=== PATIENT | male | born 1985 | race African-American/Black ===

== ENCOUNTER 2018-06-20 13:55 | Inpatient (IN) ==
[2018-06-20 14:40] LABS: Basophils % 0.4 % (0.0-0.8); Eosinophils % 0.2 % (0.00-10.9); Hematocrit 36.1 VOL% (42.0-52.0); Hemoglobin 12.9 GM/DL (14.0-18.0); Immature Granulocytes % 0.4 %; Immature Granulocytes Absolute 0.02 #; Lymphocytes # 0.4 10*3/uL (1.4-4.0); Lymphocytes % 9.8 % (21.2-54.2); Mean Corpuscular HGB Conc 35.7 GM/DL (32-36); Mean Corpuscular Hemoglobin 34 PG (27-34); Mean Corpuscular Volume 96.3 FL (87-102); Mean Platelet Volume 10.5 FL (9.6-12.0); Monocytes # 0.5 10*3/uL (0.11-0.8); Monocytes % 11.8 % (1.7-12.7); Neutrophils # 3.5 10*3/uL (1.4-7.4); Neutrophils % 77.4 % (38.7-73.9); Red Blood Count 3.75 MC/CUMM (3.8-5.5); Red Cell Distribution Width 13.6 % (9.3-17.3); White Blood Count 4.5 T/CUMM (4-12)
[2018-06-20 14:41] LABS: Platelet Count 80 T/CUMM (130-400)
[2018-06-20 14:49] LABS: PT Patient Result 10.7 SECS; Partial Thromboplastin Time 22.9 SECS (0-40)
[2018-06-20 14:55] LABS: Ammonia 54 UMOL/L (11-32)
[2018-06-20 15:00] LABS: CKMB % 0.7 %; Troponin I < 0.015 NG/ML (0.00-0.045)
[2018-06-20 15:01] LABS: Alanine Aminotransferase 63 U/L (16-61); Albumin 3.7 G/DL (3.4-5.0); Alkaline Phosphatase 66 U/L (45-117); Aspartate Amino Transferase 162 U/L (0-37); Blood Urea Nitrogen 9 MG/DL (7-18); Calcium 9.3 MG/DL (8.5-10.1); Glucose 85 MG/DL (74-106); Osmolality,Calculated 270.8 MOS/KG (273-304); Potassium 3.5 MMOL/L (3.5-5.1); Sodium 137 MMOL/L (136-145); Total Protein 7.8 G/DL (6.4-8.3)
[2018-06-20 15:15] LABS: Apearance,Urine Slightly Hazy (Clear); Bilirubin,Urine Negative (Negative); Blood, Urine Moderate mg/dL (Negative); Glucose,Urine (UA) Negative (Negative); Hyaline Casts,Urine 12 /LPF (0-3); Ketones,Urine 80 mg/dL (Negative); Mucus,Urine Occasional /LPF (Occasional); Nitrite,Urine Negative (Negative); Protein,Urine 100 MG/DL; RBC,Urine <1 /HPF (0-4); Squamous Epithelial Cell,Urine Occasional /HPF (0-10); Urine Color Yellow (Yellow); Urine Specific Gravity 1.011 (1.001-1.035); WBC,Urine 5 /HPF (0-6)
[2018-06-20] MEDS ORDERED: SODIUM CHLORIDE 0.9% 1,000 ML IV STA ×2 (15:41→16:51)
[2018-06-20 15:52] LABS: Barbiturates Screen,Urine Negative (Negative); Benzodiazepines Screen,Urine Negative (Negative); Cannabinoid Screen,Urine Negative (Negative); Opiate Screen,Urine Negative (Negative); Phencyclidine Screen,Urine Negative (Negative)
[2018-06-20] MEDS ORDERED: METOCLOPRAMIDE 10 MG/2 ML VIAL IV STA (16:14)
[2018-06-20] MEDS ORDERED: ONDANSETRON 4 MG/2 ML VIAL IV STA (16:14)
[2018-06-20] MEDS ORDERED: METOCLOPRAMIDE 10 MG/2 ML VIAL ONE (16:15)
[2018-06-20] MEDS ORDERED: ONDANSETRON 4 MG/2 ML VIAL ONE (16:15)
[2018-06-20] MEDS ORDERED: ONDANSETRON 4 MG/2 ML VIAL IV PRN (16:52)
[2018-06-20] MEDS: SODIUM CHLORIDE 0.9% 1,000 ML IV SCH (18:08)
[2018-06-20] MEDS: ALUMINUM/MAGNES/SIMETH MAX STR 30 ML UDCUP PO SCH ×2 (20:41→22:38)
[2018-06-20] MEDS ORDERED: ENOXAPARIN 30 MG/0.3 ML SYRINGE SUBCUT SCH (21:00)
[2018-06-20] MEDS: cloNIDine 0.1 MG TABLET PO PRN (21:41)
[2018-06-20] MEDS ORDERED: CLORAZEPATE 7.5 MG TABLET PO SCH (22:15)
[2018-06-20] MEDS: LORazepam 1 MG TABLET PO PRN (22:35)
[2018-06-21] MEDS: SODIUM CHLORIDE 0.9% 1,000 ML IV SCH ×4 (01:17→17:17)
[2018-06-21] MEDS: ALUMINUM/MAGNES/SIMETH MAX STR 30 ML UDCUP PO SCH ×4 (02:35→14:50)
[2018-06-21 04:17] LABS: Basophils % 0.4 % (0.0-0.8); Hematocrit 33.4 VOL% (42.0-52.0); Hemoglobin 11.6 GM/DL (14.0-18.0); Immature Granulocytes % 0.4 %; Immature Granulocytes Absolute 0.02 #; Lymphocytes # 0.6 10*3/uL (1.4-4.0); Lymphocytes % 10.6 % (21.2-54.2); Mean Corpuscular HGB Conc 34.7 GM/DL (32-36); Mean Corpuscular Hemoglobin 33 PG (27-34); Mean Platelet Volume 10.8 FL (9.6-12.0); Monocytes # 0.6 10*3/uL (0.11-0.8); Monocytes % 11.1 % (1.7-12.7); Neutrophils # 4.3 10*3/uL (1.4-7.4); Neutrophils % 77.5 % (38.7-73.9); Red Blood Count 3.48 MC/CUMM (3.8-5.5); Red Cell Distribution Width 13.2 % (9.3-17.3); White Blood Count 5.6 T/CUMM (4-12)
[2018-06-21 04:26] LABS: Platelet Count 62 T/CUMM (130-400)
[2018-06-21 04:47] LABS: Lactic Acid 0.8 MMOL/L (0.4-2.0)
[2018-06-21 05:06] LABS: Hypochromasia 1+; Platelet Estimate Decreased
[2018-06-21 05:10] LABS: Albumin 3.1 G/DL (3.4-5.0); Bilirubin,Total 1.5 MG/DL (0.2-1.0); Calcium 8.5 MG/DL (8.5-10.1); Osmolality,Calculated 264.2 MOS/KG (273-304); Total Protein 6.6 G/DL (6.4-8.3)
[2018-06-21 05:13] LABS: Troponin I 0.32 NG/ML (0.00-0.045)
[2018-06-21] MEDS: LORazepam 1 MG TABLET PO PRN ×2 (06:09→20:27)
[2018-06-21] MEDS: POTASSIUM CHLORIDE 20 MEQ TABLET PO PRN ×4 (06:09→12:08)
[2018-06-21] MEDS ORDERED: POTASSIUM CHLORIDE 20 MEQ TABLET PO ONE (08:21)
[2018-06-21] MEDS ORDERED: CLORAZEPATE 7.5 MG TABLET PO SCH (09:00)
[2018-06-21] MEDS: chlordiazePOXIDE 25 MG CAPSULE PO SCH ×3 (09:09→20:27)
[2018-06-21] MEDS: cloNIDine 0.1 MG TABLET PO PRN (16:15)
[2018-06-22] MEDS: SODIUM CHLORIDE 0.9% 1,000 ML IV SCH ×2 (00:50→08:36)
[2018-06-22] MEDS: chlordiazePOXIDE 25 MG CAPSULE PO SCH ×5 (04:06→21:35)
[2018-06-22 06:00] LABS: Basophils % 0.4 % (0.0-0.8); Eosinophils % 0.6 % (0.00-10.9); Hematocrit 34.4 VOL% (42.0-52.0); Hemoglobin 12.3 GM/DL (14.0-18.0); Immature Granulocytes % 0.4 %; Immature Granulocytes Absolute 0.02 #; Lymphocytes # 1.1 10*3/uL (1.4-4.0); Lymphocytes % 19.9 % (21.2-54.2); Mean Corpuscular HGB Conc 35.8 GM/DL (32-36); Mean Corpuscular Hemoglobin 34 PG (27-34); Mean Platelet Volume 10.8 FL (9.6-12.0); Monocytes # 0.6 10*3/uL (0.11-0.8); Monocytes % 10.8 % (1.7-12.7); NRBC # 0.02 10*3/uL; Neutrophils # 3.6 10*3/uL (1.4-7.4); Neutrophils % 67.9 % (38.7-73.9); Platelet Count 64 T/CUMM (130-400); Red Blood Count 3.62 MC/CUMM (3.8-5.5); Red Cell Distribution Width 13.2 % (9.3-17.3); White Blood Count 5.3 T/CUMM (4-12)
[2018-06-22 06:28] LABS: Hypochromasia 1+; Platelet Estimate Decreased
[2018-06-22 07:28] LABS: Albumin 2.6 G/DL (3.4-5.0); Bilirubin,Total 1.2 MG/DL (0.2-1.0); Calcium 8.3 MG/DL (8.5-10.1); Osmolality,Calculated 277.4 MOS/KG (273-304); Potassium 3.7 MMOL/L (3.5-5.1); Total Protein 6.3 G/DL (6.4-8.3); Troponin I 0.105 NG/ML (0.00-0.045)
[2018-06-22] MEDS: SODIUM BICARB INJ 50 MEQ in SODIUM CHLORIDE 0.45% 1,000 ML IV SCH ×2 (10:57→21:10)
[2018-06-22] MEDS: LORazepam 1 MG TABLET PO PRN ×2 (13:29→18:57)
[2018-06-22] MEDS ORDERED: LORazepam 1 MG TABLET PO ONE (15:27)
[2018-06-22 20:47] VITALS: BP 151/102
[2018-06-22] MEDS: cloNIDine 0.1 MG TABLET PO PRN (21:36)
== END 2018-06-22 22:55 | disposition left against medical advice (07) | DRG 894 ==
LOC: EDBD → EDUNIT# → N.ED 13:55 → N.EDINP 16:37 → SUATTDRO 16:37 → N.2E 17:13 → N.ICU 17:45 → N.2E 06-21 18:00
PROVIDERS: ADMIT Internal Medicine; ATTEND Internal Medicine

== ENCOUNTER 2018-08-23 09:48 | Inpatient (IN) ==
[2018-08-23] MEDS ORDERED: SODIUM CHLORIDE 0.9% 500 ML IV STA (11:03)
[2018-08-23] MEDS ORDERED: ONDANSETRON 4 MG/2 ML VIAL IV STA (11:03)
[2018-08-23 11:37] LABS: Basophils # 0.1 10*3/uL (0.0-0.2); Basophils % 1.3 % (0.0-0.8); Eosinophils % 0.3 % (0.00-10.9); Hematocrit 39.1 VOL% (42.0-52.0); Hemoglobin 13.7 GM/DL (14.0-18.0); Immature Granulocytes % 0.3 %; Immature Granulocytes Absolute 0.01 #; Lymphocytes # 0.7 10*3/uL (1.4-4.0); Lymphocytes % 19.2 % (21.2-54.2); Mean Corpuscular Hemoglobin 33 PG (27-34); Mean Corpuscular Volume 95.1 FL (87-102); Mean Platelet Volume 10.1 FL (9.6-12.0); Monocytes # 0.6 10*3/uL (0.11-0.8); Monocytes % 14.9 % (1.7-12.7); Neutrophils # 2.4 10*3/uL (1.4-7.4); Platelet Count 89 T/CUMM (130-400); Red Blood Count 4.11 MC/CUMM (3.8-5.5); Red Cell Distribution Width 13.4 % (9.3-17.3); White Blood Count 3.8 T/CUMM (4-12)
[2018-08-23] MEDS ORDERED: ALUM/MAG/SIMETH/LIDO VISC 1:1 30 ML BOTTLE PO STA (11:39)
[2018-08-23 12:00] LABS: Hypochromasia 1+; Target Cells Few
[2018-08-23 12:01] LABS: Platelet Estimate Decreased
[2018-08-23 12:02] LABS: Albumin 3.7 G/DL (3.4-5.0); Bilirubin,Total 1.1 MG/DL (0.2-1.0); Potassium 3.5 MMOL/L (3.5-5.1); Total Protein 8.2 G/DL (6.4-8.3)
[2018-08-23] MEDS ORDERED: LORazepam 2 MG/1 ML VIAL IV PRN (13:56)
[2018-08-23] MEDS ORDERED: SODIUM CHLORIDE 0.9% 1,000 ML IV STA (13:59)
[2018-08-23] MEDS ORDERED: MORPHINE 4 MG/1 ML VIAL IV PRN (14:00)
[2018-08-23] MEDS ORDERED: THIAMINE INJ 100 MG, FOLIC ACID INJ 1 MG, MULTIVITAMIN INJ 10 ML in SODIUM CHLORIDE 0.9... IV SCH (14:00)
[2018-08-23] MEDS ORDERED: SODIUM CHLORIDE 0.9% 1,000 ML IV SCH (14:00)
[2018-08-23 15:01] LABS: Triglycerides 86 MG/DL (2-150)
[2018-08-23] MEDS: FAMOTIDINE 20 MG/2 ML VIAL IV SCH (16:00)
[2018-08-23] MEDS: OXAZEPAM 10 MG CAPSULE PO SCH ×2 (17:19→20:37)
[2018-08-23] MEDS: 1: THIAMINE INJ 100 MG, MULTIVITAMIN INJ 10 ML, FOLIC ACID INJ 1 MG in SODIUM CHLORIDE 0 IV SCH (17:20)
[2018-08-24] MEDS: FAMOTIDINE 20 MG/2 ML VIAL IV SCH ×2 (02:10→15:00)
[2018-08-24] MEDS: 1: THIAMINE INJ 100 MG, MULTIVITAMIN INJ 10 ML, FOLIC ACID INJ 1 MG in SODIUM CHLORIDE 0 IV SCH ×2 (03:46→17:16)
[2018-08-24] MEDS: ONDANSETRON 4 MG/2 ML VIAL IV PRN ×2 (04:40→09:40)
[2018-08-24 04:57] LABS: Basophils % 0.9 % (0.0-0.8); Eosinophils % 0.6 % (0.00-10.9); Hematocrit 37.2 VOL% (42.0-52.0); Hemoglobin 12.9 GM/DL (14.0-18.0); Immature Granulocytes % 0.3 %; Immature Granulocytes Absolute 0.01 #; Lymphocytes # 1.4 10*3/uL (1.4-4.0); Lymphocytes % 41.9 % (21.2-54.2); Mean Corpuscular HGB Conc 34.7 GM/DL (32-36); Mean Corpuscular Hemoglobin 33 PG (27-34); Mean Corpuscular Volume 94.9 FL (87-102); Mean Platelet Volume 10.9 FL (9.6-12.0); Monocytes # 0.5 10*3/uL (0.11-0.8); Monocytes % 14.9 % (1.7-12.7); Neutrophils # 1.4 10*3/uL (1.4-7.4); Neutrophils % 41.4 % (38.7-73.9); Red Blood Count 3.92 MC/CUMM (3.8-5.5); Red Cell Distribution Width 12.9 % (9.3-17.3); White Blood Count 3.3 T/CUMM (4-12)
[2018-08-24 05:01] LABS: Platelet Count 71 T/CUMM (130-400)
[2018-08-24 05:24] LABS: Hypochromasia 1+; Platelet Estimate Decreased
[2018-08-24 05:39] LABS: Albumin 3.2 G/DL (3.4-5.0); Bilirubin,Total 0.98 MG/DL (0.2-1.0); Calcium 8.5 MG/DL (8.5-10.1); Total Protein 7.2 G/DL (6.4-8.3)
[2018-08-24 05:40] LABS: Osmolality,Calculated 272.7 MOS/KG (273-304); Potassium 3.6 MMOL/L (3.5-5.1)
[2018-08-24] MEDS ORDERED: PROMETHAZINE INJ 12.5 MG in SODIUM CHLORIDE 0.9% 50 ML IV PRN (09:23)
[2018-08-24] MEDS ORDERED: MAGNESIUM SULF RIDER 2 GM in PREMIX 1 EACH IV ONE (09:30)
[2018-08-24] MEDS: OXAZEPAM 10 MG CAPSULE PO SCH ×5 (09:34→21:40)
[2018-08-24] MEDS: ATENOLOL 25 MG TABLET PO SCH ×2 (11:13→21:39)
[2018-08-24] MEDS ORDERED: ALUMINUM/MAGNES/SIMETH MAX STR 30 ML UDCUP PO PRN (11:44)
[2018-08-24] MEDS: SODIUM CHLORIDE 0.9% 1,000 ML IV SCH ×2 (15:02→23:31)
[2018-08-25] MEDS: FAMOTIDINE 20 MG/2 ML VIAL IV SCH (02:10)
[2018-08-25 05:28] LABS: Calcium 8.7 MG/DL (8.5-10.1); Osmolality,Calculated 272.7 MOS/KG (273-304); Potassium 3.6 MMOL/L (3.5-5.1)
[2018-08-25] MEDS: SODIUM CHLORIDE 0.9% 1,000 ML IV SCH (07:28)
[2018-08-25] MEDS: OXAZEPAM 10 MG CAPSULE PO SCH ×2 (08:22→14:08)
[2018-08-25] MEDS: ATENOLOL 25 MG TABLET PO SCH (08:22)
[2018-08-25 12:15] VITALS: BP 143/92
[2018-08-25] MEDS ORDERED: FAMOTIDINE 20 MG TABLET PO SCH (21:00)
== END 2018-08-25 16:37 | disposition home or self-care (01) | DRG 897 ==
LOC: N.ED 09:48 → SUATTDRO 14:13 → N.EDINP 14:13 → N.CC 14:56 → N.3E 08-24 21:53
PROVIDERS: ADMIT Internal Medicine Geriatric Medicine; ATTEND Family Medicine

== ENCOUNTER 2020-05-13 03:57 | Observation (INO) ==
[2020-05-13] MEDS ORDERED: ONDANSETRON 4 MG/2 ML VIAL IV ONE (04:41)
[2020-05-13] MEDS ORDERED: ONDANSETRON 4 MG/2 ML VIAL ONE (04:42)
[2020-05-13 04:46] LABS: Basophils % 0.9 % (0.0-0.8); Eosinophils % 0.2 % (0.00-10.9); Hematocrit 38.7 VOL% (42.0-52.0); Immature Granulocytes % 0.9 %; Immature Granulocytes Absolute 0.04 #; Lymphocytes # 0.7 10*3/uL (1.4-4.0); Lymphocytes % 15.5 % (21.2-54.2); Mean Corpuscular HGB Conc 33.6 GM/DL (32-36); Mean Corpuscular Volume 101.3 FL (87-102); Mean Platelet Volume 12.3 FL (9.6-12.0); Monocytes % 12.2 % (1.7-12.7); Neutrophils % 70.3 % (38.7-73.9); Platelet Count 82 T/CUMM (130-400); Red Blood Count 3.82 MC/CUMM (3.8-5.5); Red Cell Distribution Width 13.3 % (9.3-17.3); White Blood Count 4.6 T/CUMM (4-12)
[2020-05-13 05:01] LABS: Albumin 3.4 G/DL (3.4-5.0); Bilirubin,Total 1.5 MG/DL (0.2-1.0); Calcium 9.1 MG/DL (8.5-10.1); Osmolality,Calculated 273.7 MOS/KG (273-304); Total Protein 8.1 G/DL (6.4-8.3)
[2020-05-13 05:06] LABS: Apearance,Urine Slightly Hazy (Clear); Bacteria,Urine Occasional /HPF (Few); Bilirubin,Urine Negative (Negative); Blood, Urine Negative (Negative); Glucose,Urine (UA) Negative (Negative); Hyaline Casts,Urine 12 /LPF (0-3); Ketones,Urine 20 mg/dL (Negative); Mucus,Urine Occasional /LPF (Occasional); Nitrite,Urine Negative (Negative); Protein,Urine 100 MG/DL; RBC,Urine 7 /HPF (0-4); Squamous Epithelial Cell,Urine Occasional /HPF (0-10); Urine Specific Gravity 1.014 (1.001-1.035); WBC,Urine 15 /HPF (0-6)
[2020-05-13] MEDS ORDERED: FOSPHENYTOIN 1,000 MG.PE in SODIUM CHLORIDE 0.9% 250 ML IV STA (05:06)
[2020-05-13] MEDS ORDERED: LORazepam 2 MG/1 ML VIAL IV STA ×2 (05:06→05:23)
[2020-05-13] MEDS ORDERED: LORazepam 2 MG/1 ML VIAL ONE (05:06)
[2020-05-13 05:07] LABS: Urine Color Yellow (Yellow)
[2020-05-13] MEDS ORDERED: FOSPHENYTOIN 500 MG.PE/10 ML VIAL ONE (05:08)
[2020-05-13 05:16] LABS: Eosinophils 1 % (0-10); Lymphocytes 15 % (20-55); Nucleated Red Blood Cells 1 (0-5); Platelet Estimate Decreased; Segmented Neutrophils 73 % (50-85); Total Cells Counted 100
[2020-05-13] MEDS ORDERED: cefTRIAXone 1,000 MG in SODIUM CHLORIDE 0.9% 100 ML IV STA (05:17)
[2020-05-13] MEDS ORDERED: THIAMINE INJ 100 MG, FOLIC ACID INJ 1 MG, MAGNESIUM SULF INJ 2 GM, MULTIVITAMIN INJ 10 ... IV ONE (05:36)
[2020-05-13] MEDS ORDERED: DEXTROSE 50% 25 GM/50 ML VIAL IV PRN (05:39)
[2020-05-13] MEDS ORDERED: GLUCAGON 1 MG VIAL IM PRN (05:39)
[2020-05-13] MEDS ORDERED: ACETAMINOPHEN 325 MG TABLET PO PRN (05:39)
[2020-05-13] MEDS ORDERED: ONDANSETRON 4 MG/2 ML VIAL IV PRN (05:39)
[2020-05-13 05:54] LABS: Barbiturates Screen,Urine Negative (Negative); Benzodiazepines Screen,Urine Negative (Negative); Cannabinoid Screen,Urine Negative (Negative); Opiate Screen,Urine Negative (Negative); Phencyclidine Screen,Urine Negative (Negative)
[2020-05-13] MEDS ORDERED: SODIUM CHLORIDE 0.9% 1,000 ML IV SCH (06:00)
[2020-05-13] MEDS ORDERED: cefTRIAXone 1,000 MG VIAL ONE (06:14)
[2020-05-13] MEDS ORDERED: THIAMINE 200 MG/2 ML VIAL IV SCH (09:00)
[2020-05-13] MEDS: MULTIVITAMIN (CENTRUM) TABLET PO SCH (10:49)
[2020-05-13] MEDS: FOLIC ACID 1 MG TABLET PO SCH (10:51)
[2020-05-13] MEDS: THIAMINE 100 MG TABLET PO SCH (12:24)
[2020-05-13] MEDS: ENOXAPARIN 30 MG/0.3 ML SYRINGE SUBCUT SCH (13:00)
[2020-05-13] MEDS: LACTATED RINGERS 1,000 ML IV SCH ×2 (13:13→23:01)
[2020-05-13] MEDS: LORazepam 2 MG/1 ML VIAL IV PRN ×2 (13:31→21:02)
[2020-05-13] MEDS ORDERED: POTASSIUM CHLORIDE 20 MEQ TABLET PO ONE (14:05)
[2020-05-13] MEDS ORDERED: chlordiazePOXIDE 25 MG CAPSULE PO ONE (14:07)
[2020-05-13] MEDS: levETIRAcetam 500 MG TABLET PO SCH (20:48)
[2020-05-14 07:00] LABS: Basophils % 0.5 % (0.0-0.8); Hematocrit 37.3 VOL% (42.0-52.0); Immature Granulocytes % 0.5 %; Immature Granulocytes Absolute 0.02 #; Lymphocytes # 0.9 10*3/uL (1.4-4.0); Lymphocytes % 21.3 % (21.2-54.2); Mean Corpuscular HGB Conc 34.9 GM/DL (32-36); Mean Corpuscular Volume 96.1 FL (87-102); Mean Platelet Volume 11.7 FL (9.6-12.0); Monocytes % 13.7 % (1.7-12.7); Platelet Count 62 T/CUMM (130-400); Red Blood Count 3.88 MC/CUMM (3.8-5.5); Red Cell Distribution Width 12.8 % (9.3-17.3); White Blood Count 4.2 T/CUMM (4-12)
[2020-05-14 07:27] LABS: Platelet Estimate Decreased
[2020-05-14 07:31] LABS: Albumin 3.2 G/DL (3.4-5.0); Bilirubin,Direct 0.91 MG/DL (0.0-0.20); Bilirubin,Indirect 1.4 MG/DL (0.0-1.0); Bilirubin,Total 2.3 MG/DL (0.2-1.0); Total Protein 7.4 G/DL (6.4-8.3)
[2020-05-14 07:37] LABS: Calcium 8.8 MG/DL (8.5-10.1); Osmolality,Calculated 268.8 MOS/KG (273-304); Thyroid Stimulating Hormone 2.26 uIU/ml (0.358-3.74)
[2020-05-14] MEDS: LACTATED RINGERS 1,000 ML IV SCH ×3 (09:21→19:56)
[2020-05-14] MEDS: FOLIC ACID 1 MG TABLET PO SCH (09:22)
[2020-05-14] MEDS: cefTRIAXone 1,000 MG in SYRINGE 1 EACH IV SCH (09:22)
[2020-05-14] MEDS: ENOXAPARIN 30 MG/0.3 ML SYRINGE SUBCUT SCH (09:22)
[2020-05-14] MEDS: THIAMINE 100 MG TABLET PO SCH (09:22)
[2020-05-14] MEDS: MULTIVITAMIN (CENTRUM) TABLET PO SCH (09:22)
[2020-05-14] MEDS: levETIRAcetam 500 MG TABLET PO SCH ×2 (09:22→21:10)
[2020-05-14] MEDS: chlordiazePOXIDE 25 MG CAPSULE PO SCH ×3 (09:26→21:10)
[2020-05-15] MEDS: LACTATED RINGERS 1,000 ML IV SCH ×2 (05:50→21:29)
[2020-05-15] MEDS: ENOXAPARIN 30 MG/0.3 ML SYRINGE SUBCUT SCH (08:35)
[2020-05-15] MEDS: chlordiazePOXIDE 25 MG CAPSULE PO SCH ×3 (08:35→21:28)
[2020-05-15] MEDS: levETIRAcetam 500 MG TABLET PO SCH ×2 (08:35→21:29)
[2020-05-15] MEDS: MULTIVITAMIN (CENTRUM) TABLET PO SCH (08:35)
[2020-05-15] MEDS: cefTRIAXone 1,000 MG in SYRINGE 1 EACH IV SCH (08:36)
[2020-05-15] MEDS: THIAMINE 100 MG TABLET PO SCH (08:36)
[2020-05-15] MEDS: FOLIC ACID 1 MG TABLET PO SCH (08:36)
[2020-05-15] MEDS ORDERED: POTASSIUM CHLORIDE 20 MEQ TABLET PO ONE (11:53)
[2020-05-16] MEDS: LACTATED RINGERS 1,000 ML IV SCH (02:51)
[2020-05-16 05:11] LABS: Osmolality,Calculated 273.5 MOS/KG (273-304)
[2020-05-16 08:20] VITALS: BP 129/86
[2020-05-16] MEDS: chlordiazePOXIDE 25 MG CAPSULE PO SCH (08:30)
[2020-05-16] MEDS: MULTIVITAMIN (CENTRUM) TABLET PO SCH (08:30)
[2020-05-16] MEDS: ENOXAPARIN 30 MG/0.3 ML SYRINGE SUBCUT SCH (08:30)
[2020-05-16] MEDS: FOLIC ACID 1 MG TABLET PO SCH (08:30)
[2020-05-16] MEDS: levETIRAcetam 500 MG TABLET PO SCH (08:30)
[2020-05-16] MEDS: THIAMINE 100 MG TABLET PO SCH (08:30)
== END 2020-05-16 10:34 | disposition home or self-care (01) ==
LOC: EDUNIT# → EDBD → N.ED 03:57 → N.EDINP 03:57 → SUATTDRO 05:39 → N.TELEN 07:32
PROVIDERS: ADMIT Internal Medicine; ATTEND Internal Medicine

== ENCOUNTER 2021-03-08 09:01 | Inpatient (IN) ==
[2021-03-08] MEDS ORDERED: THIAMINE INJ 100 MG, FOLIC ACID INJ 1 MG, MAGNESIUM SULF INJ 2 GM, MULTIVITAMIN INJ 10 ... IV STA (09:18)
[2021-03-08] MEDS ORDERED: SODIUM CHLORIDE 0.9% 1,000 ML IV STA (09:18)
[2021-03-08 10:05] LABS: Basophils % 0.3 % (0.0-0.8); Hematocrit 29.3 VOL% (42.0-52.0); Hemoglobin 10.9 GM/DL (14.0-18.0); Immature Granulocytes % 2.1 %; Immature Granulocytes Absolute 0.13 #; Lymphocytes # 0.6 10*3/uL (1.4-4.0); Lymphocytes % 9.1 % (21.2-54.2); Mean Corpuscular HGB Conc 37.2 GM/DL (32-36); Mean Corpuscular Volume 94.2 FL (87-102); Mean Platelet Volume 12.2 FL (9.6-12.0); Monocytes % 12.6 % (1.7-12.7); NRBC # 0.05 10*3/uL; Neutrophils % 75.9 % (38.7-73.9); Platelet Count 100 T/CUMM (130-400); Red Blood Count 3.11 MC/CUMM (3.8-5.5); Red Cell Distribution Width 15.6 % (9.3-17.3); White Blood Count 6.3 T/CUMM (4-12)
[2021-03-08 10:10] LABS: INR 1.4; PT Patient Result 15.8 SECS (10.5-12.0)
[2021-03-08 10:52] LABS: Platelet Estimate Adequate; Polychromasia Slight; Target Cells 1+
[2021-03-08 11:51] LABS: Albumin 2.2 G/DL (3.4-5.0); Calcium 8.3 MG/DL (8.5-10.1); Osmolality,Calculated 257.8 MOS/KG (273-304); Total Protein 6.5 G/DL (6.4-8.2)
[2021-03-08 11:53] LABS: Bilirubin,Total 19.7 MG/DL (0.2-1.0); Potassium 2.3 MMOL/L (3.5-5.1)
[2021-03-08] MEDS ORDERED: POTASSIUM CHLORIDE 20 MEQ TABLET PO STA (11:57)
[2021-03-08] MEDS ORDERED: POTASSIUM CHLORIDE RIDER 20 MEQ in PREMIX 1 EACH IV STA (12:05)
[2021-03-08 12:06] LABS: Blood, Urine Negative (Negative); Glucose,Urine (UA) Negative (Negative); Ketones,Urine 20 mg/dL (Negative); Mucus,Urine Occasional /LPF (Occasional); Nitrite,Urine Negative (Negative); Protein,Urine 30 MG/DL; RBC,Urine 1 /HPF (0-4); Squamous Epithelial Cell,Urine Occasional /HPF (0-10); Urine Appearance CLEAR (Clear); Urine Color Amber (Yellow); Urine Specific Gravity 1.012 (1.001-1.035)
[2021-03-08 12:07] LABS: Bilirubin,Urine Moderate mg/dL (Negative)
[2021-03-08] MEDS ORDERED: POTASSIUM CHLORIDE RIDER 100 ML IV ONE (12:17)
[2021-03-08 12:25] LABS: Barbiturates Screen,Urine Negative (Negative); Benzodiazepines Screen,Urine Negative (Negative); Cannabinoid Screen,Urine Negative (Negative); Opiate Screen,Urine Negative (Negative); Phencyclidine Screen,Urine Negative (Negative)
[2021-03-08] MEDS: POTASSIUM CHLORIDE RIDER 10 MEQ in PREMIX 1 EACH IV SCH ×5 (12:49→22:22)
[2021-03-08 13:40] LABS: Bilirubin,Direct 15.41 MG/DL (0.0-0.20)
[2021-03-08 13:43] LABS: Bilirubin,Indirect 4.3 MG/DL (0.0-1.0); Bilirubin,Total 19.7 MG/DL (0.2-1.0)
[2021-03-08] MEDS ORDERED: PANTOPRAZOLE 40 MG TABLET PO SCH (15:30)
[2021-03-08] MEDS: levETIRAcetam 500 MG TABLET PO SCH (17:05)
[2021-03-08] MEDS ORDERED: LORazepam 2 MG/1 ML VIAL IV PRN (17:17)
[2021-03-08 17:46] LABS: % Iron Saturation 85.7 % (18-50)
[2021-03-08] MEDS: SODIUM CHLORIDE 0.9% 1,000 ML IV SCH (18:00)
[2021-03-08 18:25] LABS: Hepatitis B Core IgM Quant 0.07 Index; Hepatitis B Surface Ag Quant < 0.10 Index; Hepatitis B Surface Ag Result Non-Reactive (NonReactive); Hepatitis C Virus Ab Quant 0.13 Index; Hepatitis C Virus Ab Result Non-Reactive (NonReactive)
[2021-03-08 20:04] LABS: Blood, Urine Negative (Negative); Glucose,Urine (UA) Negative (Negative); Hyaline Casts,Urine 3 /LPF (0-3); Ketones,Urine 20 mg/dL (Negative); Mucus,Urine Occasional /LPF (Occasional); Nitrite,Urine Negative (Negative); Protein,Urine Negative; RBC,Urine 1 /HPF (0-4); Squamous Epithelial Cell,Urine Occasional /HPF (0-10); Urine Appearance CLEAR (Clear); Urine Color Amber (Yellow)
[2021-03-08 20:11] LABS: Bilirubin,Urine Moderate mg/dL (Negative)
[2021-03-08] MEDS: POTASSIUM CHLORIDE 20 MEQ/15 ML UDCUP PO SCH (22:00)
[2021-03-08] MEDS: PHENYTOIN ER 100 MG CAPSULE PO SCH (22:00)
[2021-03-08] MEDS: chlordiazePOXIDE 25 MG CAPSULE PO SCH (22:00)
[2021-03-08] MEDS: PANTOPRAZOLE 40 MG VIAL IV SCH (22:01)
[2021-03-09] MEDS: ONDANSETRON 4 MG/2 ML VIAL IV PRN (01:41)
[2021-03-09 03:00] LABS: Basophils % 0.4 % (0.0-0.8); Eosinophils % 0.2 % (0.00-10.9); Hematocrit 21.7 VOL% (42.0-52.0); Immature Granulocytes % 0.9 %; Immature Granulocytes Absolute 0.05 #; Lymphocytes # 0.8 10*3/uL (1.4-4.0); Lymphocytes % 13.5 % (21.2-54.2); Mean Corpuscular HGB Conc 38.7 GM/DL (32-36); Mean Corpuscular Volume 94.8 FL (87-102); Mean Platelet Volume 10.9 FL (9.6-12.0); Monocytes % 11.5 % (1.7-12.7); Neutrophils % 73.5 % (38.7-73.9); Platelet Count 62 T/CUMM (130-400); Red Blood Count 2.29 MC/CUMM (3.8-5.5); Red Cell Distribution Width 15.4 % (9.3-17.3); White Blood Count 5.6 T/CUMM (4-12)
[2021-03-09 03:07] LABS: Hemoglobin 8.4 GM/DL (14.0-18.0)
[2021-03-09 03:20] LABS: Calcium 8.2 MG/DL (8.5-10.1); Osmolality,Calculated 255.9 MOS/KG (273-304); Potassium 2.9 MMOL/L (3.5-5.1); Total Protein 5.8 G/DL (6.4-8.2)
[2021-03-09 03:24] LABS: Bilirubin,Total 19.5 MG/DL (0.2-1.0)
[2021-03-09 03:34] LABS: Lymphocytes 9 % (20-55); Nucleated Red Blood Cells 5 (0-5); Platelet Estimate Decreased; Segmented Neutrophils 88 % (50-85); Total Cells Counted 100
[2021-03-09 03:35] LABS: Hypochromasia Slight; Target Cells Few
[2021-03-09] MEDS ORDERED: PROMETHAZINE 25 MG/1 ML VIAL IM ONE (03:49)
[2021-03-09] MEDS ORDERED: KETOROLAC 30 MG/1 ML VIAL IM ONE (03:49)
[2021-03-09] MEDS: levETIRAcetam 500 MG TABLET PO SCH ×2 (04:08→16:02)
[2021-03-09] MEDS: POTASSIUM CHLORIDE RIDER 10 MEQ in PREMIX 1 EACH IV SCH (07:07)
[2021-03-09] MEDS: SODIUM CHLORIDE 0.9% 1,000 ML IV SCH ×2 (07:20→11:03)
[2021-03-09 10:33] LABS: INR 1.3; PT Patient Result 14.5 SECS (10.5-12.0); Partial Thromboplastin Time 37.3 SECS (23.9-33.8)
[2021-03-09] MEDS ORDERED: SODIUM CHLORIDE 0.9% 1,000 ML IV PRN (10:43)
[2021-03-09 10:59] LABS: Hematocrit 25.6 VOL% (42.0-52.0); Hemoglobin 9.3 GM/DL (14.0-18.0)
[2021-03-09] MEDS: chlordiazePOXIDE 25 MG CAPSULE PO SCH (10:59)
[2021-03-09] MEDS: POTASSIUM CHLORIDE 20 MEQ/15 ML UDCUP PO SCH ×3 (10:59→20:03)
[2021-03-09] MEDS: FOLIC ACID INJ 1 MG in SYRINGE 1 EACH IV SCH (10:59)
[2021-03-09] MEDS: prednisoLONE 15 MG/5 ML ORAL.SYR PO SCH (11:00)
[2021-03-09] MEDS: PANTOPRAZOLE 40 MG VIAL IV SCH ×2 (11:00→20:07)
[2021-03-09] MEDS: THIAMINE 200 MG/2 ML VIAL IV SCH (11:00)
[2021-03-09] MEDS: SODIUM CHLOR 0.9% KCL 20 MEQ 20 MEQ/1,000 ML BAG IV SCH (16:02)
[2021-03-09] MEDS: PHENYTOIN ER 100 MG CAPSULE PO SCH (20:06)
[2021-03-09] MEDS: LORazepam 2 MG/1 ML VIAL IV PRN (22:19)
[2021-03-09 22:35] LABS: Hemoglobin 8.5 GM/DL (14.0-18.0)
[2021-03-10] MEDS: ONDANSETRON 4 MG/2 ML VIAL IV PRN (00:04)
[2021-03-10] MEDS ORDERED: SODIUM CHLORIDE 0.9% 1,000 ML IV PRN (00:10)
[2021-03-10 01:35] LABS: Calcium 8.3 MG/DL (8.5-10.1); Osmolality,Calculated 260.8 MOS/KG (273-304); Potassium 3.3 MMOL/L (3.5-5.1)
[2021-03-10] MEDS: SODIUM CHLOR 0.9% KCL 20 MEQ 20 MEQ/1,000 ML BAG IV SCH ×3 (03:47→18:58)
[2021-03-10] MEDS: levETIRAcetam 500 MG TABLET PO SCH ×2 (06:11→20:35)
[2021-03-10] MEDS ORDERED: LACTATED RINGERS 1,000 ML IV SCH (09:00)
[2021-03-10] MEDS ORDERED: LIDOCAINE 2% 5 ML VIAL ONE (09:02)
[2021-03-10] MEDS ORDERED: propofoL 200 MG/20 ML VIAL IV ONE (09:02)
[2021-03-10] MEDS: PANTOPRAZOLE 40 MG VIAL IV SCH ×2 (10:09→20:37)
[2021-03-10] MEDS: THIAMINE 200 MG/2 ML VIAL IV SCH (10:10)
[2021-03-10] MEDS: prednisoLONE 15 MG/5 ML ORAL.SYR PO SCH (10:11)
[2021-03-10] MEDS: POTASSIUM CHLORIDE 20 MEQ/15 ML UDCUP PO SCH ×2 (10:12→15:17)
[2021-03-10] MEDS: FOLIC ACID INJ 1 MG in SYRINGE 1 EACH IV SCH (10:16)
[2021-03-10 10:58] LABS: Hematocrit 28.1 VOL% (42.0-52.0)
[2021-03-10 11:03] LABS: Hemoglobin 10.3 GM/DL (14.0-18.0)
[2021-03-10] MEDS: METOCLOPRAMIDE 10 MG/2 ML VIAL IV SCH ×2 (15:17→20:36)
[2021-03-10] MEDS: PHENYTOIN ER 100 MG CAPSULE PO SCH (20:35)
[2021-03-10 22:59] LABS: Hematocrit 23.3 VOL% (42.0-52.0); Hemoglobin 8.5 GM/DL (14.0-18.0)
[2021-03-11] MEDS: LORazepam 2 MG/1 ML VIAL IV PRN (02:10)
[2021-03-11] MEDS: METOCLOPRAMIDE 10 MG/2 ML VIAL IV SCH ×4 (04:30→20:09)
[2021-03-11 06:17] LABS: Basophils % 0.2 % (0.0-0.8); Eosinophils % 0.4 % (0.00-10.9); Hematocrit 24.6 VOL% (42.0-52.0); Hemoglobin 8.9 GM/DL (14.0-18.0); Immature Granulocytes % 4.5 %; Immature Granulocytes Absolute 0.24 #; Lymphocytes # 0.5 10*3/uL (1.4-4.0); Lymphocytes % 8.7 % (21.2-54.2); Mean Corpuscular HGB Conc 36.6 GM/DL (32-36); Mean Corpuscular Volume 96.1 FL (87-102); Mean Platelet Volume 10.2 FL (9.6-12.0); Monocytes % 10.6 % (1.7-12.7); NRBC # 0.57 10*3/uL; Neutrophils % 75.6 % (38.7-73.9); Red Blood Count 2.56 MC/CUMM (3.8-5.5); Red Cell Distribution Width 16.3 % (9.3-17.3); White Blood Count 5.4 T/CUMM (4-12)
[2021-03-11 06:19] LABS: Platelet Count 103 T/CUMM (130-400)
[2021-03-11 06:38] LABS: Calcium 8.2 MG/DL (8.5-10.1); Osmolality,Calculated 265.2 MOS/KG (273-304); Potassium 4.3 MMOL/L (3.5-5.1)
[2021-03-11 06:44] LABS: Band Neutrophils 3 % (0-10); Hypochromasia 1+; Lymphocytes 11 % (20-55); Macrocytosis Slight; Nucleated Red Blood Cells 5 (0-5); Platelet Estimate Decreased; Polychromasia Slight; Segmented Neutrophils 80 % (50-85); Target Cells Few; Total Cells Counted 100
[2021-03-11] MEDS ORDERED: LORazepam 0.5 MG TABLET PO ONE (08:58)
[2021-03-11] MEDS: FOLIC ACID INJ 1 MG in SYRINGE 1 EACH IV SCH (09:42)
[2021-03-11] MEDS: prednisoLONE 15 MG/5 ML ORAL.SYR PO SCH (09:43)
[2021-03-11] MEDS: THIAMINE 200 MG/2 ML VIAL IV SCH (09:43)
[2021-03-11] MEDS: PANTOPRAZOLE 40 MG VIAL IV SCH ×2 (09:43→20:10)
[2021-03-11] MEDS: SODIUM CHLOR 0.9% KCL 20 MEQ 20 MEQ/1,000 ML BAG IV SCH ×2 (09:48→17:56)
[2021-03-11 10:45] LABS: Alanine Aminotransferase 83 U/L (16-61); Aspartate Amino Transferase 344 U/L (0-37)
[2021-03-11 11:40] LABS: Hematocrit 23.1 VOL% (42.0-52.0); Hemoglobin 8.4 GM/DL (14.0-18.0)
[2021-03-11] MEDS: levETIRAcetam 500 MG TABLET PO SCH ×2 (12:03→20:08)
[2021-03-11 16:29] LABS: Hemoglobin 7.8 GM/DL (14.0-18.0)
[2021-03-11] MEDS ORDERED: SODIUM CHLORIDE 0.9% 1,000 ML IV PRN (17:02)
[2021-03-11 22:32] LABS: Hematocrit 21.8 VOL% (42.0-52.0); Hemoglobin 7.8 GM/DL (14.0-18.0)
[2021-03-12] MEDS: METOCLOPRAMIDE 10 MG/2 ML VIAL IV SCH ×3 (02:40→15:04)
[2021-03-12] MEDS: SODIUM CHLOR 0.9% KCL 20 MEQ 20 MEQ/1,000 ML BAG IV SCH ×4 (03:43→16:31)
[2021-03-12 06:28] LABS: Osmolality,Calculated 270.8 MOS/KG (273-304); Potassium 3.6 MMOL/L (3.5-5.1)
[2021-03-12 06:29] LABS: Alanine Aminotransferase 85 U/L (16-61); Aspartate Amino Transferase 290 U/L (0-37)
[2021-03-12 06:40] LABS: Albumin 1.8 G/DL (3.4-5.0); Bilirubin,Direct 20.02 MG/DL (0.0-0.20); Bilirubin,Indirect 4.5 MG/DL (0.0-1.0); Total Protein 4.9 G/DL (6.4-8.2)
[2021-03-12 06:43] LABS: Bilirubin,Total 24.5 MG/DL (0.2-1.0)
[2021-03-12] MEDS: THIAMINE 100 MG TABLET PO SCH (09:21)
[2021-03-12] MEDS: prednisoLONE 15 MG/5 ML ORAL.SYR PO SCH (09:21)
[2021-03-12] MEDS: levETIRAcetam 500 MG TABLET PO SCH ×2 (09:21→21:37)
[2021-03-12] MEDS: PANTOPRAZOLE 40 MG VIAL IV SCH ×2 (09:21→21:37)
[2021-03-12] MEDS ORDERED: LORazepam 1 MG TABLET PO ONE (09:35)
[2021-03-12 09:39] LABS: Basophils % 0.4 % (0.0-0.8); Eosinophils % 0.6 % (0.00-10.9); Hematocrit 30.9 VOL% (42.0-52.0); Immature Granulocytes % 5.8 %; Immature Granulocytes Absolute 0.42 #; Lymphocytes % 13.2 % (21.2-54.2); Mean Corpuscular HGB Conc 35.9 GM/DL (32-36); Mean Corpuscular Volume 94.8 FL (87-102); Mean Platelet Volume 11.5 FL (9.6-12.0); Monocytes % 9.6 % (1.7-12.7); NRBC # 0.46 10*3/uL; Neutrophils % 70.4 % (38.7-73.9); Red Cell Distribution Width 19.4 % (9.3-17.3)
[2021-03-12 09:41] LABS: Red Blood Count 3.26 MC/CUMM (3.8-5.5); White Blood Count 7.2 T/CUMM (4-12)
[2021-03-12 09:42] LABS: Hemoglobin 11.1 GM/DL (14.0-18.0)
[2021-03-12 09:43] LABS: Platelet Count 78 T/CUMM (130-400)
[2021-03-12 10:05] LABS: Band Neutrophils 1 % (0-10); Eosinophils 1 % (0-10); Hypochromasia 1+; Lymphocytes 21 % (20-55); Myelocytes 1 %; Nucleated Red Blood Cells 11 (0-5); Segmented Neutrophils 66 % (50-85); Total Cells Counted 100
[2021-03-12 10:06] LABS: Macrocytosis 1+; Polychromasia Few; Target Cells Few
[2021-03-12 10:07] LABS: Pappenheimer Bodies Slight
[2021-03-12 12:46] LABS: Antinuclear Ab, S 0.3 U
[2021-03-12] MEDS: METOCLOPRAMIDE 10 MG/10 ML UDCUP PO SCH (21:36)
[2021-03-13] MEDS: SODIUM CHLOR 0.9% KCL 20 MEQ 20 MEQ/1,000 ML BAG IV SCH ×3 (00:15→19:58)
[2021-03-13 06:28] LABS: Basophils # 0.1 10*3/uL (0.0-0.2); Basophils % 0.8 % (0.0-0.8); Eosinophils % 0.4 % (0.00-10.9); Hematocrit 26.2 VOL% (42.0-52.0); Hemoglobin 9.6 GM/DL (14.0-18.0); Immature Granulocytes % 7.9 %; Immature Granulocytes Absolute 0.62 #; Lymphocytes # 0.9 10*3/uL (1.4-4.0); Lymphocytes % 11.5 % (21.2-54.2); Mean Corpuscular HGB Conc 36.6 GM/DL (32-36); Mean Corpuscular Volume 92.6 FL (87-102); Mean Platelet Volume 9.9 FL (9.6-12.0); Monocytes % 14.4 % (1.7-12.7); NRBC # 0.52 10*3/uL; Platelet Count 113 T/CUMM (130-400); Red Blood Count 2.83 MC/CUMM (3.8-5.5); Red Cell Distribution Width 20.4 % (9.3-17.3); White Blood Count 7.9 T/CUMM (4-12)
[2021-03-13 06:29] LABS: INR 1.5; PT Patient Result 16.7 SECS (10.5-12.0)
[2021-03-13 06:46] LABS: Calcium 8.2 MG/DL (8.5-10.1); Osmolality,Calculated 274.4 MOS/KG (273-304); Potassium 3.6 MMOL/L (3.5-5.1)
[2021-03-13 06:59] LABS: Albumin 1.7 G/DL (3.4-5.0); Bilirubin,Direct 19.94 MG/DL (0.0-0.20); Bilirubin,Indirect 4.3 MG/DL (0.0-1.0); Total Protein 4.9 G/DL (6.4-8.2)
[2021-03-13 07:01] LABS: Hypochromasia 1+; Lymphocytes 8 % (20-55); Microcytosis 1+; Nucleated Red Blood Cells 1 (0-5); Platelet Estimate Decreased; Segmented Neutrophils 79 % (50-85); Total Cells Counted 100
[2021-03-13 07:03] LABS: Bilirubin,Total 24.2 MG/DL (0.2-1.0)
[2021-03-13 08:01] LABS: Alpha-1-Antitrypsin, Serum 223 mg/dL (100 - 190)
[2021-03-13] MEDS: PANTOPRAZOLE 40 MG TABLET PO SCH ×2 (10:10→18:08)
[2021-03-13] MEDS: THIAMINE 100 MG TABLET PO SCH (10:10)
[2021-03-13] MEDS: METOCLOPRAMIDE 10 MG/10 ML UDCUP PO SCH ×4 (10:10→20:16)
[2021-03-13] MEDS: levETIRAcetam 500 MG TABLET PO SCH ×2 (10:10→20:15)
[2021-03-13] MEDS: prednisoLONE 15 MG/5 ML ORAL.SYR PO SCH (10:15)
[2021-03-14] MEDS: SODIUM CHLOR 0.9% KCL 20 MEQ 20 MEQ/1,000 ML BAG IV SCH ×2 (05:29→19:32)
[2021-03-14] MEDS: PANTOPRAZOLE 40 MG TABLET PO SCH ×2 (05:29→18:38)
[2021-03-14 06:33] LABS: Basophils % 0.3 % (0.0-0.8); Eosinophils % 0.2 % (0.00-10.9); Hematocrit 28.5 VOL% (42.0-52.0); Hemoglobin 10.1 GM/DL (14.0-18.0); Immature Granulocytes % 8.3 %; Immature Granulocytes Absolute 0.73 #; Mean Corpuscular HGB Conc 35.4 GM/DL (32-36); Mean Corpuscular Volume 95.6 FL (87-102); Mean Platelet Volume 9.8 FL (9.6-12.0); Monocytes % 15.2 % (1.7-12.7); NRBC # 0.47 10*3/uL; Platelet Count 148 T/CUMM (130-400); Red Blood Count 2.98 MC/CUMM (3.8-5.5); Red Cell Distribution Width 21.2 % (9.3-17.3); White Blood Count 8.8 T/CUMM (4-12)
[2021-03-14 06:52] LABS: Calcium 8.4 MG/DL (8.5-10.1); Potassium 3.7 MMOL/L (3.5-5.1)
[2021-03-14 07:14] LABS: Albumin 1.8 G/DL (3.4-5.0)
[2021-03-14 07:23] LABS: Bilirubin,Indirect 2.9 MG/DL (0.0-1.0); Bilirubin,Total 23.9 MG/DL (0.2-1.0)
[2021-03-14 07:29] LABS: Anisocytosis 2+; Band Neutrophils 2 % (0-10); Lymphocytes 12 % (20-55); Metamyelocytes 1 %; Myelocytes 1 %; Nucleated Red Blood Cells 6 (0-5); Platelet Estimate Adequate; Segmented Neutrophils 67 % (50-85); Total Cells Counted 100
[2021-03-14 07:31] LABS: Macrocytosis 1+; Poikilocytosis Slight; Polychromasia Slight; Target Cells 1+
[2021-03-14] MEDS: METOCLOPRAMIDE 10 MG/10 ML UDCUP PO SCH ×4 (08:42→20:22)
[2021-03-14] MEDS: prednisoLONE 15 MG/5 ML ORAL.SYR PO SCH (08:42)
[2021-03-14] MEDS: THIAMINE 100 MG TABLET PO SCH (08:42)
[2021-03-14] MEDS: levETIRAcetam 500 MG TABLET PO SCH ×2 (08:43→20:22)
[2021-03-15 05:53] LABS: Basophils % 0.2 % (0.0-0.8); Eosinophils % 0.2 % (0.00-10.9); Hematocrit 27.6 VOL% (42.0-52.0); Hemoglobin 9.7 GM/DL (14.0-18.0); Immature Granulocytes % 8.9 %; Immature Granulocytes Absolute 0.78 #; Lymphocytes # 0.9 10*3/uL (1.4-4.0); Lymphocytes % 10.5 % (21.2-54.2); Mean Corpuscular HGB Conc 35.1 GM/DL (32-36); Mean Corpuscular Volume 96.2 FL (87-102); Mean Platelet Volume 9.8 FL (9.6-12.0); Monocytes % 17.2 % (1.7-12.7); NRBC # 0.27 10*3/uL; Platelet Count 143 T/CUMM (130-400); Red Blood Count 2.87 MC/CUMM (3.8-5.5); Red Cell Distribution Width 20.9 % (9.3-17.3); White Blood Count 8.8 T/CUMM (4-12)
[2021-03-15] MEDS: PANTOPRAZOLE 40 MG TABLET PO SCH ×2 (06:05→17:57)
[2021-03-15 06:07] LABS: INR 1.5; PT Patient Result 16.9 SECS (10.5-12.0)
[2021-03-15 06:29] LABS: Albumin 1.7 G/DL (3.4-5.0); Calcium 8.5 MG/DL (8.5-10.1); Osmolality,Calculated 270.8 MOS/KG (273-304); Potassium 3.3 MMOL/L (3.5-5.1); Total Protein 5.1 G/DL (6.4-8.2)
[2021-03-15 06:33] LABS: Bilirubin,Total 23.8 MG/DL (0.2-1.0)
[2021-03-15 06:54] LABS: Albumin 1.8 G/DL (3.4-5.0); Total Protein 5.1 G/DL (6.4-8.2)
[2021-03-15 06:55] LABS: Bilirubin,Indirect 2.8 MG/DL (0.0-1.0); Bilirubin,Total 23.8 MG/DL (0.2-1.0)
[2021-03-15 07:06] LABS: Band Neutrophils 2 % (0-10); Eosinophils 1 % (0-10); Lymphocytes 12 % (20-55); Metamyelocytes 3 %; Nucleated Red Blood Cells 5 (0-5); Platelet Estimate Adequate; Segmented Neutrophils 62 % (50-85); Total Cells Counted 100
[2021-03-15 07:07] LABS: Hypochromasia 2+
[2021-03-15] MEDS ORDERED: POTASSIUM CHLORIDE 20 MEQ TABLET PO ONE (07:41)
[2021-03-15] MEDS: levETIRAcetam 500 MG TABLET PO SCH ×2 (08:00→21:37)
[2021-03-15] MEDS: prednisoLONE 15 MG/5 ML ORAL.SYR PO SCH (08:00)
[2021-03-15] MEDS: METOCLOPRAMIDE 10 MG/10 ML UDCUP PO SCH ×4 (08:00→21:37)
[2021-03-15] MEDS: THIAMINE 100 MG TABLET PO SCH (08:00)
[2021-03-15] MEDS: LACTULOSE 20 GM/30 ML UDCUP PO SCH (21:39)
[2021-03-16 05:20] LABS: Basophils % 0.4 % (0.0-0.8); Eosinophils % 0.1 % (0.00-10.9); Hematocrit 27.5 VOL% (42.0-52.0); Immature Granulocytes % 9.6 %; Immature Granulocytes Absolute 0.91 #; Lymphocytes # 1.2 10*3/uL (1.4-4.0); Lymphocytes % 12.3 % (21.2-54.2); Mean Corpuscular HGB Conc 36.4 GM/DL (32-36); Mean Corpuscular Volume 93.9 FL (87-102); Mean Platelet Volume 9.9 FL (9.6-12.0); Monocytes % 15.2 % (1.7-12.7); NRBC # 0.24 10*3/uL; Neutrophils % 62.4 % (38.7-73.9); Platelet Count 155 T/CUMM (130-400); Red Blood Count 2.93 MC/CUMM (3.8-5.5); Red Cell Distribution Width 21.1 % (9.3-17.3); White Blood Count 9.5 T/CUMM (4-12)
[2021-03-16] MEDS: PANTOPRAZOLE 40 MG TABLET PO SCH ×2 (05:43→17:37)
[2021-03-16 05:47] LABS: Band Neutrophils 1 % (0-10); Hypochromasia 1+; Lymphocytes 18 % (20-55); Metamyelocytes 1 %; Nucleated Red Blood Cells 2 (0-5); Segmented Neutrophils 64 % (50-85); Total Cells Counted 100
[2021-03-16 05:48] LABS: Anisocytosis 1+; Microcytosis 1+; Polychromasia Slight; Target Cells 1+
[2021-03-16 05:59] LABS: Calcium 8.4 MG/DL (8.5-10.1); Potassium 3.5 MMOL/L (3.5-5.1)
[2021-03-16] MEDS: prednisoLONE 15 MG/5 ML ORAL.SYR PO SCH (10:14)
[2021-03-16] MEDS: THIAMINE 100 MG TABLET PO SCH (10:14)
[2021-03-16] MEDS: METOCLOPRAMIDE 10 MG/10 ML UDCUP PO SCH ×4 (10:14→21:04)
[2021-03-16] MEDS: levETIRAcetam 500 MG TABLET PO SCH ×2 (10:14→21:04)
[2021-03-16] MEDS: LACTULOSE 20 GM/30 ML UDCUP PO SCH ×2 (10:14→21:04)
[2021-03-16 11:43] LABS: Bacteria,Urine Occasional /HPF (Few); Blood, Urine Small mg/dL (Negative); Glucose,Urine (UA) Negative (Negative); Ketones,Urine Negative (Negative); Mucus,Urine Occasional /LPF (Occasional); Nitrite,Urine Negative (Negative); Protein,Urine Negative; RBC,Urine 1 /HPF (0-4); Squamous Epithelial Cell,Urine Occasional /HPF (0-10); Urine Appearance CLEAR (Clear); Urine Color Amber (Yellow); Urine Specific Gravity 1.015 (1.001-1.035)
[2021-03-16 11:44] LABS: Bilirubin,Urine Moderate mg/dL (Negative)
[2021-03-16] MEDS ORDERED: SODIUM CHLORIDE 0.9% 500 ML IV ONE (12:26)
[2021-03-16] MEDS ORDERED: ACETAMINOPHEN 325 MG TABLET PO ONE (12:27)
[2021-03-16] MEDS ORDERED: cefTRIAXone 1,000 MG in SODIUM CHLORIDE 0.9% 100 ML IV SCH (12:30)
[2021-03-16] MEDS ORDERED: cefTRIAXone 1,000 MG VIAL IM ONE ×2 (13:09→14:21)
[2021-03-17] MEDS: PANTOPRAZOLE 40 MG TABLET PO SCH ×2 (05:30→17:54)
[2021-03-17 05:57] LABS: Basophils # 0.1 10*3/uL (0.0-0.2); Basophils % 0.5 % (0.0-0.8); Eosinophils % 0.1 % (0.00-10.9); Hematocrit 30.6 VOL% (42.0-52.0); Hemoglobin 11.1 GM/DL (14.0-18.0); Immature Granulocytes % 8.4 %; Immature Granulocytes Absolute 0.92 #; Lymphocytes # 0.9 10*3/uL (1.4-4.0); Lymphocytes % 8.5 % (21.2-54.2); Mean Corpuscular HGB Conc 36.3 GM/DL (32-36); Mean Corpuscular Volume 94.2 FL (87-102); Mean Platelet Volume 9.6 FL (9.6-12.0); Monocytes % 7.9 % (1.7-12.7); NRBC # 0.19 10*3/uL; Neutrophils % 74.6 % (38.7-73.9); Platelet Count 174 T/CUMM (130-400); Red Blood Count 3.25 MC/CUMM (3.8-5.5); Red Cell Distribution Width 21.2 % (9.3-17.3)
[2021-03-17 06:24] LABS: Eosinophils 1 % (0-10); Lymphocytes 8 % (20-55); Macrocytosis Slight; Nucleated Red Blood Cells 1 (0-5); Platelet Estimate Adequate; Polychromasia Slight; Segmented Neutrophils 87 % (50-85); Target Cells Slight; Total Cells Counted 100
[2021-03-17 06:25] LABS: Hypochromasia Slight
[2021-03-17 06:55] LABS: Albumin 1.9 G/DL (3.4-5.0); Osmolality,Calculated 267.2 MOS/KG (273-304); Potassium 3.5 MMOL/L (3.5-5.1); Total Protein 5.6 G/DL (6.4-8.2)
[2021-03-17 06:58] LABS: Bilirubin,Total 26.2 MG/DL (0.2-1.0)
[2021-03-17] MEDS: LACTULOSE 20 GM/30 ML UDCUP PO SCH (08:09)
[2021-03-17] MEDS: levETIRAcetam 500 MG TABLET PO SCH (08:10)
[2021-03-17] MEDS: METOCLOPRAMIDE 10 MG/10 ML UDCUP PO SCH ×4 (08:11→23:55)
[2021-03-17] MEDS: prednisoLONE 15 MG/5 ML ORAL.SYR PO SCH (08:11)
[2021-03-17] MEDS: THIAMINE 100 MG TABLET PO SCH (08:11)
[2021-03-17] MEDS: ONDANSETRON 4 MG TABLET PO PRN (08:21)
[2021-03-18] MEDS: levETIRAcetam 500 MG TABLET PO SCH ×3 (00:03→22:33)
[2021-03-18] MEDS: LACTULOSE 20 GM/30 ML UDCUP PO SCH ×3 (00:04→21:33)
[2021-03-18 05:39] LABS: Basophils # 0.1 10*3/uL (0.0-0.2); Basophils % 0.4 % (0.0-0.8); Eosinophils % 0.2 % (0.00-10.9); Hematocrit 27.9 VOL% (42.0-52.0); Hemoglobin 10.3 GM/DL (14.0-18.0); Immature Granulocytes % 7.5 %; Immature Granulocytes Absolute 0.91 #; Lymphocytes # 1.1 10*3/uL (1.4-4.0); Lymphocytes % 9.1 % (21.2-54.2); Mean Corpuscular HGB Conc 36.9 GM/DL (32-36); Mean Corpuscular Volume 93.3 FL (87-102); Mean Platelet Volume 9.9 FL (9.6-12.0); Monocytes % 6.7 % (1.7-12.7); NRBC # 0.14 10*3/uL; Neutrophils % 76.1 % (38.7-73.9); Platelet Count 176 T/CUMM (130-400); Red Blood Count 2.99 MC/CUMM (3.8-5.5); Red Cell Distribution Width 21.1 % (9.3-17.3); White Blood Count 12.2 T/CUMM (4-12)
[2021-03-18 06:13] LABS: Albumin 1.8 G/DL (3.4-5.0); Calcium 8.4 MG/DL (8.5-10.1); Potassium 3.3 MMOL/L (3.5-5.1); Total Protein 5.2 G/DL (6.4-8.2)
[2021-03-18] MEDS: PANTOPRAZOLE 40 MG TABLET PO SCH ×2 (06:17→18:34)
[2021-03-18 07:06] LABS: Band Neutrophils 1 % (0-10); Hypochromasia 1+; Lymphocytes 13 % (20-55); Microcytosis 1+; Myelocytes 1 %; Polychromasia Slight; Segmented Neutrophils 76 % (50-85); Target Cells Few; Total Cells Counted 100
[2021-03-18 07:07] LABS: Platelet Estimate Adequate
[2021-03-18] MEDS: ONDANSETRON 4 MG TABLET PO PRN (08:53)
[2021-03-18] MEDS: METOCLOPRAMIDE 10 MG/10 ML UDCUP PO SCH ×4 (08:53→21:33)
[2021-03-18] MEDS: THIAMINE 100 MG TABLET PO SCH (08:53)
[2021-03-18] MEDS ORDERED: POTASSIUM CHLORIDE 20 MEQ TABLET PO ONE (09:00)
[2021-03-18] MEDS ORDERED: IBUPROFEN 600 MG TABLET PO ONE (20:56)
[2021-03-18] MEDS ORDERED: cefTRIAXone 1,000 MG in SODIUM CHLORIDE 0.9% 100 ML IV SCH (22:00)
[2021-03-19 05:26] LABS: Basophils % 0.2 % (0.0-0.8); Eosinophils % 0.2 % (0.00-10.9); Hematocrit 26.9 VOL% (42.0-52.0); Hemoglobin 9.6 GM/DL (14.0-18.0); Immature Granulocytes % 6.5 %; Immature Granulocytes Absolute 0.84 #; Lymphocytes # 1.2 10*3/uL (1.4-4.0); Lymphocytes % 9.3 % (21.2-54.2); Mean Corpuscular HGB Conc 35.7 GM/DL (32-36); Mean Corpuscular Volume 95.4 FL (87-102); Mean Platelet Volume 9.7 FL (9.6-12.0); NRBC # 0.09 10*3/uL; Neutrophils % 77.8 % (38.7-73.9); Platelet Count 151 T/CUMM (130-400); Red Blood Count 2.82 MC/CUMM (3.8-5.5); Red Cell Distribution Width 21.2 % (9.3-17.3); White Blood Count 12.9 T/CUMM (4-12)
[2021-03-19 05:37] LABS: INR 1.4; PT Patient Result 14.8 SECS (10.5-12.0)
[2021-03-19 05:59] LABS: Hypochromasia Slight; Lymphocytes 9 % (20-55); Macrocytosis Slight; Platelet Estimate Adequate; Polychromasia Slight; Segmented Neutrophils 88 % (50-85); Total Cells Counted 100
[2021-03-19 06:04] LABS: Albumin 1.7 G/DL (3.4-5.0); Calcium 8.4 MG/DL (8.5-10.1); Osmolality,Calculated 266.1 MOS/KG (273-304); Potassium 3.1 MMOL/L (3.5-5.1); Total Protein 4.9 G/DL (6.4-8.2)
[2021-03-19 06:08] LABS: Bilirubin,Total 23.2 MG/DL (0.2-1.0)
[2021-03-19] MEDS: PANTOPRAZOLE 40 MG TABLET PO SCH ×2 (07:34→17:50)
[2021-03-19] MEDS: LACTULOSE 20 GM/30 ML UDCUP PO SCH ×2 (10:11→20:50)
[2021-03-19] MEDS: ONDANSETRON 4 MG TABLET PO PRN (10:11)
[2021-03-19] MEDS: THIAMINE 100 MG TABLET PO SCH (10:12)
[2021-03-19] MEDS: levETIRAcetam 500 MG TABLET PO SCH ×2 (10:12→20:50)
[2021-03-19] MEDS: POTASSIUM CHLORIDE 20 MEQ TABLET PO SCH ×2 (10:12→18:12)
[2021-03-19] MEDS ORDERED: MORPHINE 4 MG/1 ML VIAL IV PRN (10:35)
[2021-03-19] MEDS: PIPERACILLIN/TAZOBACTAM 3,375 MG in SODIUM CHLORIDE 0.9% 100 ML IV SCH ×2 (11:57→20:50)
[2021-03-19] MEDS ORDERED: POTASSIUM CHLORIDE 20 MEQ TABLET PO SCH (18:00)
[2021-03-20 05:09] LABS: Basophils # 0.1 10*3/uL (0.0-0.2); Basophils % 0.3 % (0.0-0.8); Eosinophils % 0.1 % (0.00-10.9); Hematocrit 25.2 VOL% (42.0-52.0); Hemoglobin 9.2 GM/DL (14.0-18.0); Immature Granulocytes % 5.1 %; Immature Granulocytes Absolute 0.81 #; Lymphocytes % 6.3 % (21.2-54.2); Mean Corpuscular HGB Conc 36.5 GM/DL (32-36); Monocytes % 6.3 % (1.7-12.7); NRBC # 0.05 10*3/uL; Neutrophils % 81.9 % (38.7-73.9); Platelet Count 117 T/CUMM (130-400); Red Blood Count 2.68 MC/CUMM (3.8-5.5); Red Cell Distribution Width 21.8 % (9.3-17.3)
[2021-03-20 05:30] LABS: Lymphocytes 8 % (20-55); Segmented Neutrophils 87 % (50-85); Total Cells Counted 100
[2021-03-20 05:32] LABS: Macrocytosis Slight; Polychromasia Slight
[2021-03-20] MEDS: PIPERACILLIN/TAZOBACTAM 3,375 MG in SODIUM CHLORIDE 0.9% 100 ML IV SCH ×3 (05:47→21:02)
[2021-03-20] MEDS: PANTOPRAZOLE 40 MG TABLET PO SCH (05:48)
[2021-03-20 06:09] LABS: Albumin 1.6 G/DL (3.4-5.0); Calcium 8.4 MG/DL (8.5-10.1); Osmolality,Calculated 265.1 MOS/KG (273-304); Potassium 3.3 MMOL/L (3.5-5.1); Total Protein 5.1 G/DL (6.4-8.2)
[2021-03-20 06:12] LABS: Bilirubin,Total 26.9 MG/DL (0.2-1.0)
[2021-03-20] MEDS: LACTULOSE 20 GM/30 ML UDCUP PO SCH ×2 (09:18→21:02)
[2021-03-20] MEDS: levETIRAcetam 500 MG TABLET PO SCH ×2 (09:19→21:02)
[2021-03-20] MEDS: THIAMINE 100 MG TABLET PO SCH (09:19)
[2021-03-20] MEDS: CIPROFLOXACIN 500 MG TABLET PO SCH ×2 (09:19→21:02)
[2021-03-20] MEDS: POTASSIUM CHLORIDE 20 MEQ TABLET PO SCH ×2 (09:22→13:15)
[2021-03-20] MEDS ORDERED: IBUPROFEN 600 MG TABLET PO PRN (15:38)
[2021-03-21] MEDS: PANTOPRAZOLE 40 MG TABLET PO SCH ×2 (05:01→05:50)
[2021-03-21 05:10] LABS: Basophils % 0.2 % (0.0-0.8); Eosinophils % 0.2 % (0.00-10.9); Hemoglobin 9.1 GM/DL (14.0-18.0); Immature Granulocytes % 4.4 %; Immature Granulocytes Absolute 0.64 #; Lymphocytes # 0.7 10*3/uL (1.4-4.0); Lymphocytes % 4.9 % (21.2-54.2); Mean Corpuscular Volume 97.7 FL (87-102); Mean Platelet Volume 9.8 FL (9.6-12.0); Monocytes % 5.5 % (1.7-12.7); NRBC # 0.03 10*3/uL; Neutrophils % 84.8 % (38.7-73.9); Platelet Count 124 T/CUMM (130-400); Red Blood Count 2.66 MC/CUMM (3.8-5.5); Red Cell Distribution Width 22.4 % (9.3-17.3); White Blood Count 14.6 T/CUMM (4-12)
[2021-03-21 05:42] LABS: Albumin 1.4 G/DL (3.4-5.0); Calcium 8.6 MG/DL (8.5-10.1); Osmolality,Calculated 270.8 MOS/KG (273-304); Potassium 3.6 MMOL/L (3.5-5.1)
[2021-03-21 05:50] LABS: Bilirubin,Total 23.8 MG/DL (0.2-1.0)
[2021-03-21] MEDS: PIPERACILLIN/TAZOBACTAM 3,375 MG in SODIUM CHLORIDE 0.9% 100 ML IV SCH (05:50)
[2021-03-21 06:11] LABS: Anisocytosis 2+; Band Neutrophils 3 % (0-10); Lymphocytes 8 % (20-55); Macrocytosis 1+; Metamyelocytes 2 %; Platelet Estimate Adequate; Segmented Neutrophils 82 % (50-85); Target Cells 1+; Total Cells Counted 100
[2021-03-21 06:12] LABS: Polychromasia Slight; Tear Drop Cells Few
[2021-03-21] MEDS: LACTULOSE 20 GM/30 ML UDCUP PO SCH ×2 (08:39→09:31)
[2021-03-21] MEDS: levETIRAcetam 500 MG TABLET PO SCH (08:39)
[2021-03-21] MEDS: THIAMINE 100 MG TABLET PO SCH (08:40)
[2021-03-21] MEDS: CIPROFLOXACIN 500 MG TABLET PO SCH (08:40)
[2021-03-21] MEDS ORDERED: POTASSIUM CHLORIDE 20 MEQ TABLET PO SCH (09:00)
[2021-03-21 15:28] VITALS: BP 116/64
== END 2021-03-21 17:50 | disposition left against medical advice (07) | DRG 433 ==
LOC: N.ED 09:01 → SUATTDRO 15:18 → N.EDINP 15:18 → N.5E 15:51
PROVIDERS: ADMIT Internal Medicine; ATTEND Internal Medicine

== ENCOUNTER 2021-04-05 18:23 | Inpatient (IN) ==
[2021-04-05 20:05] LABS: Basophils # 0.1 10*3/uL (0.0-0.2); Basophils % 0.8 % (0.0-0.8); Eosinophils # 0.2 10*3/uL (0.0-0.87); Hematocrit 30.3 VOL% (42.0-52.0); Hemoglobin 10.6 GM/DL (14.0-18.0); Immature Granulocytes % 4.7 %; Immature Granulocytes Absolute 0.81 #; Lymphocytes # 1.3 10*3/uL (1.4-4.0); Lymphocytes % 7.6 % (21.2-54.2); Mean Corpuscular Volume 94.4 FL (87-102); Mean Platelet Volume 10.2 FL (9.6-12.0); Monocytes % 10.8 % (1.7-12.7); NRBC # 0.02 10*3/uL; Neutrophils % 75.1 % (38.7-73.9); Platelet Count 196 T/CUMM (130-400); Red Blood Count 3.21 MC/CUMM (3.8-5.5); Red Cell Distribution Width 17.2 % (9.3-17.3); White Blood Count 17.2 T/CUMM (4-12)
[2021-04-05 20:28] LABS: Atypical Lymphocytes Few; Band Neutrophils 3 % (0-10); Eosinophils 2 % (0-10); Lymphocytes 5 % (20-55); Segmented Neutrophils 82 % (50-85); Target Cells 2+; Total Cells Counted 100
[2021-04-05 20:29] LABS: Anisocytosis 2+; Macrocytosis 2+; Microcytosis 2+; Platelet Estimate Normal; Polychromasia 1+
[2021-04-05 20:36] LABS: Albumin 1.7 G/DL (3.4-5.0); Calcium 8.8 MG/DL (8.5-10.1); Osmolality,Calculated 262.7 MOS/KG (273-304); Potassium 2.8 MMOL/L (3.5-5.1); Total Protein 6.3 G/DL (6.4-8.2)
[2021-04-05 20:37] LABS: Bilirubin,Total 28.1 MG/DL (0.2-1.0)
[2021-04-05 20:37] LABS: INR 1.6; PT Patient Result 17.2 SECS (10.5-12.0)
[2021-04-05] MEDS: SODIUM CHLOR 0.9% KCL 40 MEQ 40 MEQ/1,000 ML BAG IV SCH (21:08)
[2021-04-05] MEDS ORDERED: POTASSIUM CHLORIDE 20 MEQ TABLET PO STA (21:09)
[2021-04-05] MEDS ORDERED: NICOTINE 21 MG/24 HR PATCH TRANSDERM PRN (21:12)
[2021-04-05] MEDS ORDERED: hydrALAZINE 20 MG/1 ML VIAL IV PRN (21:12)
[2021-04-05] MEDS ORDERED: GLUCAGON 1 MG VIAL IM PRN (21:12)
[2021-04-05] MEDS ORDERED: DEXTROSE 50% 25 GM/50 ML VIAL IV PRN (21:12)
[2021-04-05] MEDS ORDERED: ONDANSETRON 4 MG/2 ML VIAL IV PRN (21:12)
[2021-04-05] MEDS ORDERED: DOCUSATE SODIUM 100 MG CAPSULE PO PRN (21:12)
[2021-04-05] MEDS ORDERED: diphenhydrAMINE CAP 25 MG CAPSULE PO PRN (21:12)
[2021-04-05] MEDS ORDERED: guaiFENesin/DM ER 600-30 MG TABLET PO PRN (21:12)
[2021-04-05] MEDS: levETIRAcetam 500 MG TABLET PO SCH (21:39)
[2021-04-05] MEDS: LACTULOSE 20 GM/30 ML UDCUP PO SCH (23:24)
[2021-04-06] MEDS: SODIUM CHLORIDE 0.9% 1,000 ML IV SCH ×3 (00:47→17:59)
[2021-04-06 04:57] LABS: Basophils # 0.1 10*3/uL (0.0-0.2); Eosinophils # 0.3 10*3/uL (0.0-0.87); Eosinophils % 1.9 % (0.00-10.9); Hematocrit 27.2 VOL% (42.0-52.0); Hemoglobin 9.7 GM/DL (14.0-18.0); Immature Granulocytes % 5.3 %; Immature Granulocytes Absolute 0.77 #; Lymphocytes # 1.4 10*3/uL (1.4-4.0); Lymphocytes % 9.3 % (21.2-54.2); Mean Corpuscular HGB Conc 35.7 GM/DL (32-36); Mean Corpuscular Volume 94.1 FL (87-102); Mean Platelet Volume 9.8 FL (9.6-12.0); Neutrophils % 70.5 % (38.7-73.9); Platelet Count 156 T/CUMM (130-400); Red Blood Count 2.89 MC/CUMM (3.8-5.5); Red Cell Distribution Width 17.1 % (9.3-17.3); White Blood Count 14.5 T/CUMM (4-12)
[2021-04-06 05:21] LABS: Calcium 8.2 MG/DL (8.5-10.1); Osmolality,Calculated 269.2 MOS/KG (273-304); Potassium 3.3 MMOL/L (3.5-5.1)
[2021-04-06 05:32] LABS: Albumin 1.5 G/DL (3.4-5.0); Bilirubin,Direct 21.41 MG/DL (0.0-0.20); Total Protein 5.5 G/DL (6.4-8.2)
[2021-04-06 05:33] LABS: Band Neutrophils 1 % (0-10); Lymphocytes 5 % (20-55); Platelet Estimate Normal; Segmented Neutrophils 85 % (50-85); Total Cells Counted 100
[2021-04-06 05:34] LABS: Hypochromasia Slight
[2021-04-06] MEDS: LACTULOSE 20 GM/30 ML UDCUP PO SCH ×3 (06:01→16:59)
[2021-04-06 06:37] LABS: Bilirubin,Indirect 3.8 MG/DL (0.0-1.0); Bilirubin,Total 25.2 MG/DL (0.2-1.0)
[2021-04-06] MEDS: SODIUM CHLOR 0.9% KCL 40 MEQ 40 MEQ/1,000 ML BAG IV SCH (07:11)
[2021-04-06] MEDS: levETIRAcetam 500 MG TABLET PO SCH ×2 (08:41→20:31)
[2021-04-06] MEDS: THIAMINE 100 MG TABLET PO SCH (08:41)
[2021-04-06] MEDS: FOLIC ACID 1 MG TABLET PO SCH (08:41)
[2021-04-06] MEDS: PANTOPRAZOLE 40 MG TABLET PO SCH (08:41)
[2021-04-06] MEDS: MORPHINE 4 MG/1 ML VIAL IV PRN ×2 (08:44→20:31)
[2021-04-06] MEDS ORDERED: RIFAXIMIN 550 MG TABLET PO SCH (09:00)
[2021-04-06] MEDS ORDERED: SODIUM CHLORIDE 0.9% 1,000 ML IV PRN (10:12)
[2021-04-07] MEDS: LACTULOSE 20 GM/30 ML UDCUP PO SCH ×4 (00:16→17:07)
[2021-04-07] MEDS: SODIUM CHLORIDE 0.9% 1,000 ML IV SCH ×2 (02:11→15:22)
[2021-04-07 03:08] LABS: Blood, Urine Negative (Negative); Glucose,Urine (UA) Negative (Negative); Hyaline Casts,Urine 2 /LPF (0-3); Ketones,Urine Negative (Negative); Mucus,Urine Occasional /LPF (Occasional); Nitrite,Urine Negative (Negative); Protein,Urine Negative; Squamous Epithelial Cell,Urine Occasional /HPF (0-10); Urine Appearance CLEAR (Clear); Urine Color Amber (Yellow); Urine Specific Gravity 1.013 (1.001-1.035)
[2021-04-07 03:09] LABS: Bilirubin,Urine Moderate mg/dL (Negative)
[2021-04-07] MEDS: MORPHINE 4 MG/1 ML VIAL IV PRN (05:54)
[2021-04-07 07:31] LABS: INR 1.5; PT Patient Result 16.7 SECS (10.5-12.0)
[2021-04-07 08:01] LABS: Albumin 1.4 G/DL (3.4-5.0); Bilirubin,Direct 20.29 MG/DL (0.0-0.20); Total Protein 5.1 G/DL (6.4-8.2)
[2021-04-07 08:18] LABS: Bilirubin,Indirect 3.4 MG/DL (0.0-1.0); Bilirubin,Total 23.7 MG/DL (0.2-1.0)
[2021-04-07] MEDS: levETIRAcetam 500 MG TABLET PO SCH ×3 (08:35→20:54)
[2021-04-07] MEDS: FOLIC ACID 1 MG TABLET PO SCH ×2 (08:35→08:39)
[2021-04-07] MEDS: PANTOPRAZOLE 40 MG TABLET PO SCH ×2 (08:35→08:39)
[2021-04-07] MEDS: THIAMINE 100 MG TABLET PO SCH ×2 (08:36→08:39)
[2021-04-07] MEDS ORDERED: DIAZEPAM 5 MG TABLET PO ONE (10:22)
[2021-04-07] MEDS: SODIUM CHLORIDE 0.45% 1,000 ML IV SCH (10:47)
[2021-04-07] MEDS: ZALEPLON 5 MG CAPSULE PO PRN (20:54)
[2021-04-08] MEDS: LACTULOSE 20 GM/30 ML UDCUP PO SCH ×4 (00:23→17:27)
[2021-04-08] MEDS: MORPHINE 4 MG/1 ML VIAL IV PRN (05:24)
[2021-04-08 05:41] LABS: Basophils # 0.1 10*3/uL (0.0-0.2); Basophils % 0.4 % (0.0-0.8); Eosinophils # 0.2 10*3/uL (0.0-0.87); Eosinophils % 1.2 % (0.00-10.9); Hematocrit 26.9 VOL% (42.0-52.0); Hemoglobin 9.8 GM/DL (14.0-18.0); Immature Granulocytes % 6.3 %; Immature Granulocytes Absolute 1.02 #; Lymphocytes # 1.3 10*3/uL (1.4-4.0); Lymphocytes % 7.7 % (21.2-54.2); Mean Corpuscular HGB Conc 36.4 GM/DL (32-36); Mean Corpuscular Volume 93.4 FL (87-102); Mean Platelet Volume 9.7 FL (9.6-12.0); Monocytes % 9.3 % (1.7-12.7); Neutrophils % 75.1 % (38.7-73.9); Platelet Count 144 T/CUMM (130-400); Red Blood Count 2.88 MC/CUMM (3.8-5.5); Red Cell Distribution Width 16.8 % (9.3-17.3); White Blood Count 16.3 T/CUMM (4-12)
[2021-04-08 05:52] LABS: INR 1.6; PT Patient Result 17.2 SECS (10.5-12.0)
[2021-04-08 06:02] LABS: Eosinophils 5 % (0-10); Hypochromasia 1+; Lymphocytes 7 % (20-55); Microcytosis 1+; Platelet Estimate Adequate; Segmented Neutrophils 79 % (50-85); Total Cells Counted 100
[2021-04-08 06:08] LABS: Albumin 1.4 G/DL (3.4-5.0); Calcium 8.5 MG/DL (8.5-10.1); Osmolality,Calculated 267.2 MOS/KG (273-304); Potassium 2.9 MMOL/L (3.5-5.1); Total Protein 5.4 G/DL (6.4-8.2)
[2021-04-08 06:28] LABS: Bilirubin,Total 25.2 MG/DL (0.2-1.0)
[2021-04-08 06:45] LABS: Albumin 1.5 G/DL (3.4-5.0); Bilirubin,Direct 20.97 MG/DL (0.0-0.20); Total Protein 5.1 G/DL (6.4-8.2)
[2021-04-08 06:46] LABS: Bilirubin,Indirect 4.2 MG/DL (0.0-1.0); Bilirubin,Total 25.2 MG/DL (0.2-1.0)
[2021-04-08] MEDS: THIAMINE 100 MG TABLET PO SCH (08:18)
[2021-04-08] MEDS: FOLIC ACID 1 MG TABLET PO SCH (08:18)
[2021-04-08] MEDS: levETIRAcetam 500 MG TABLET PO SCH ×2 (08:18→21:12)
[2021-04-08] MEDS: PANTOPRAZOLE 40 MG TABLET PO SCH (08:18)
[2021-04-08] MEDS: POTASSIUM CHLORIDE RIDER 10 MEQ/100 ML PREMIX IV PRN ×5 (08:18→17:53)
[2021-04-08] MEDS: SODIUM CHLORIDE 0.45% 1,000 ML IV SCH (09:40)
[2021-04-08] MEDS: SODIUM CHLORIDE 0.9% 1,000 ML IV SCH (10:39)
[2021-04-08] MEDS ORDERED: LORazepam 0.5 MG TABLET PO PRN (19:34)
[2021-04-09] MEDS: POTASSIUM CHLORIDE RIDER 10 MEQ/100 ML PREMIX IV PRN ×4 (00:19→03:21)
[2021-04-09] MEDS: LACTULOSE 20 GM/30 ML UDCUP PO SCH ×5 (00:19→23:38)
[2021-04-09] MEDS: MORPHINE 4 MG/1 ML VIAL IV PRN ×2 (00:19→11:45)
[2021-04-09 06:32] LABS: INR 1.6; PT Patient Result 17.2 SECS (10.5-12.0)
[2021-04-09 06:49] LABS: Albumin 1.4 G/DL (3.4-5.0); Bilirubin,Direct 20.04 MG/DL (0.0-0.20); Total Protein 5.3 G/DL (6.4-8.2)
[2021-04-09 06:52] LABS: Bilirubin,Indirect 3.6 MG/DL (0.0-1.0); Bilirubin,Total 23.6 MG/DL (0.2-1.0)
[2021-04-09] MEDS: levETIRAcetam 500 MG TABLET PO SCH ×2 (09:59→21:14)
[2021-04-09] MEDS: PANTOPRAZOLE 40 MG TABLET PO SCH (09:59)
[2021-04-09] MEDS: FOLIC ACID 1 MG TABLET PO SCH (09:59)
[2021-04-09] MEDS: THIAMINE 100 MG TABLET PO SCH (09:59)
[2021-04-09] MEDS: SODIUM CHLORIDE 0.45% 1,000 ML IV SCH (11:31)
[2021-04-09] MEDS: SODIUM CHLORIDE 0.9% 1,000 ML IV SCH (17:20)
[2021-04-09] MEDS: ZALEPLON 5 MG CAPSULE PO PRN (21:14)
[2021-04-10] MEDS: SODIUM CHLORIDE 0.9% 1,000 ML IV SCH ×2 (05:28→11:37)
[2021-04-10] MEDS: LACTULOSE 20 GM/30 ML UDCUP PO SCH ×2 (05:29→11:37)
[2021-04-10] MEDS: MORPHINE 4 MG/1 ML VIAL IV PRN (05:29)
[2021-04-10] MEDS: FOLIC ACID 1 MG TABLET PO SCH (08:56)
[2021-04-10] MEDS: levETIRAcetam 500 MG TABLET PO SCH (08:56)
[2021-04-10] MEDS: THIAMINE 100 MG TABLET PO SCH (08:56)
[2021-04-10] MEDS: PANTOPRAZOLE 40 MG TABLET PO SCH (08:56)
[2021-04-10] MEDS: SODIUM CHLORIDE 0.45% 1,000 ML IV SCH (11:45)
[2021-04-10 11:48] VITALS: BP 104/64
== END 2021-04-10 14:45 | disposition home or self-care (01) | DRG 433 ==
LOC: N.ED 18:23 → N.EDINP 21:13 → SUATTDRO 21:13 → N.3E 22:24
PROVIDERS: ADMIT Internal Medicine; ATTEND Internal Medicine

== ENCOUNTER 2021-04-18 07:04 | Inpatient (IN) ==
[2021-04-18] MEDS ORDERED: THIAMINE 200 MG/2 ML VIAL IV STA (07:37)
[2021-04-18] MEDS ORDERED: SODIUM CHLORIDE 0.9% 1,000 ML IV STA (07:37)
[2021-04-18 07:58] LABS: Lactic Acid 2.5 MMOL/L (0.4-2.0)
[2021-04-18 07:59] LABS: Basophils # 0.1 10*3/uL (0.0-0.2); Basophils % 0.8 % (0.0-0.8); Eosinophils # 0.1 10*3/uL (0.0-0.87); Eosinophils % 0.9 % (0.00-10.9); Hematocrit 23.1 VOL% (42.0-52.0); Hemoglobin 8.3 GM/DL (14.0-18.0); Immature Granulocytes % 1.2 %; Immature Granulocytes Absolute 0.17 #; Lymphocytes # 1.1 10*3/uL (1.4-4.0); Lymphocytes % 7.3 % (21.2-54.2); Mean Corpuscular HGB Conc 35.9 GM/DL (32-36); Mean Platelet Volume 9.9 FL (9.6-12.0); Monocytes % 11.9 % (1.7-12.7); Neutrophils % 77.9 % (38.7-73.9); Platelet Count 142 T/CUMM (130-400); Red Blood Count 2.51 MC/CUMM (3.8-5.5); White Blood Count 14.3 T/CUMM (4-12)
[2021-04-18] MEDS ORDERED: THIAMINE INJ 100 MG, FOLIC ACID INJ 1 MG, MULTIVITAMIN INJ 10 ML in DEXTROSE 5% NACL 0.... IV SCH (08:00)
[2021-04-18 08:04] LABS: Alanine Aminotransferase 29 U/L (16-61); Albumin 1.6 G/DL (3.4-5.0); Alkaline Phosphatase 131 U/L (45-117); Aspartate Amino Transferase 106 U/L (0-37); Blood Urea Nitrogen 17 MG/DL (7-18); Calcium 8.7 MG/DL (8.5-10.1); Carbon Dioxide 21 MMOL/L (21-32); Estimated Glom Filtration Rate 44 ML/MIN; Glucose 85 MG/DL (74-106); Osmolality,Calculated 268.2 MOS/KG (273-304); Potassium 3.1 MMOL/L (3.5-5.1); Sodium 134 MMOL/L (136-145); Total Protein 5.7 G/DL (6.4-8.2)
[2021-04-18 08:07] LABS: INR 1.7; PT Patient Result 18.5 SECS (10.5-12.0)
[2021-04-18 08:19] LABS: Folate 11.47 NG/ML (5.38-24.0); Vitamin B12 > 2000 PG/ML (211-911)
[2021-04-18] MEDS ORDERED: GLUCAGON 1 MG VIAL IM PRN (10:33)
[2021-04-18] MEDS ORDERED: ONDANSETRON 4 MG/2 ML VIAL IV PRN (10:33)
[2021-04-18] MEDS ORDERED: DEXTROSE 50% 25 GM/50 ML VIAL IV PRN (10:33)
[2021-04-18] MEDS ORDERED: cefTRIAXone 1,000 MG in SODIUM CHLORIDE 0.9% 100 ML IV SCH (11:30)
[2021-04-18] MEDS: LACTULOSE 20 GM/30 ML UDCUP PO SCH ×2 (14:53→22:46)
[2021-04-18] MEDS: levETIRAcetam 500 MG TABLET PO SCH (14:54)
[2021-04-18] MEDS: POTASSIUM CHLORIDE 20 MEQ TABLET PO PRN (14:54)
[2021-04-18 14:55] LABS: Blood, Urine Negative (Negative); Calcium Oxalate Crystals,Urine Occasional /HPF (Few); Glucose,Urine (UA) Negative (Negative); Hyaline Casts,Urine 6 /LPF (0-3); Ketones,Urine Negative (Negative); Mucus,Urine Occasional /LPF (Occasional); Nitrite,Urine Negative (Negative); Protein,Urine Negative; RBC,Urine 3 /HPF (0-4); Squamous Epithelial Cell,Urine Occasional /HPF (0-10); Urine Appearance CLEAR (Clear); Urine Color Amber (Yellow)
[2021-04-18 14:56] LABS: Bilirubin,Urine Moderate mg/dL (Negative)
[2021-04-18 15:29] LABS: Alcohol Patient Result Negative (Negative); Barbiturates Screen,Urine Negative (Negative); Benzodiazepines Screen,Urine Negative (Negative); Cannabinoid Screen,Urine Negative (Negative); Opiate Screen,Urine Negative (Negative); Phencyclidine Screen,Urine Negative (Negative)
[2021-04-18] MEDS: PIPERACILLIN/TAZOBACTAM 3,375 MG in SODIUM CHLORIDE 0.9% 100 ML IV SCH (16:44)
[2021-04-18] MEDS: SODIUM CHLOR 0.9% KCL 20 MEQ 20 MEQ/1,000 ML BAG IV SCH (17:00)
[2021-04-18] MEDS ORDERED: KETOROLAC 15 MG/1 ML VIAL IV ONE (22:14)
[2021-04-19] MEDS: PIPERACILLIN/TAZOBACTAM 3,375 MG in SODIUM CHLORIDE 0.9% 100 ML IV SCH ×3 (01:17→15:29)
[2021-04-19] MEDS: SODIUM CHLOR 0.9% KCL 20 MEQ 20 MEQ/1,000 ML BAG IV SCH ×2 (06:00→18:11)
[2021-04-19 06:17] LABS: Basophils # 0.1 10*3/uL (0.0-0.2); Basophils % 0.7 % (0.0-0.8); Eosinophils # 0.2 10*3/uL (0.0-0.87); Eosinophils % 1.7 % (0.00-10.9); Hematocrit 21.2 VOL% (42.0-52.0); Immature Granulocytes % 1.1 %; Immature Granulocytes Absolute 0.13 #; Lymphocytes # 1.1 10*3/uL (1.4-4.0); Mean Corpuscular HGB Conc 35.8 GM/DL (32-36); Mean Corpuscular Volume 91.4 FL (87-102); Mean Platelet Volume 10.3 FL (9.6-12.0); Monocytes % 12.7 % (1.7-12.7); Neutrophils % 74.8 % (38.7-73.9); Red Blood Count 2.32 MC/CUMM (3.8-5.5); Red Cell Distribution Width 16.1 % (9.3-17.3); White Blood Count 12.1 T/CUMM (4-12)
[2021-04-19 06:19] LABS: Hemoglobin 7.6 GM/DL (14.0-18.0); Platelet Count 120 T/CUMM (130-400)
[2021-04-19 06:27] LABS: Albumin 1.4 G/DL (3.4-5.0); Calcium 8.4 MG/DL (8.5-10.1); Osmolality,Calculated 276.7 MOS/KG (273-304); Potassium 2.9 MMOL/L (3.5-5.1)
[2021-04-19 06:42] LABS: Bilirubin,Total 22.8 MG/DL (0.2-1.0)
[2021-04-19] MEDS: levETIRAcetam 500 MG TABLET PO SCH ×2 (10:08→21:58)
[2021-04-19] MEDS: PANTOPRAZOLE 40 MG TABLET PO SCH (10:08)
[2021-04-19] MEDS: THIAMINE 100 MG TABLET PO SCH (10:09)
[2021-04-19] MEDS: LACTULOSE 20 GM/30 ML UDCUP PO SCH ×3 (10:09→21:58)
[2021-04-19] MEDS: FOLIC ACID 1 MG TABLET PO SCH (10:09)
[2021-04-19] MEDS ORDERED: MORPHINE 4 MG/1 ML VIAL IV PRN (10:51)
[2021-04-19] MEDS ORDERED: POTASSIUM CHLORIDE 20 MEQ/15 ML UDCUP PO ONE (14:37)
[2021-04-20] MEDS: PIPERACILLIN/TAZOBACTAM 3,375 MG in SODIUM CHLORIDE 0.9% 100 ML IV SCH ×3 (00:54→16:14)
[2021-04-20 07:30] LABS: Basophils # 0.1 10*3/uL (0.0-0.2); Basophils % 0.4 % (0.0-0.8); Eosinophils # 0.2 10*3/uL (0.0-0.87); Eosinophils % 1.8 % (0.00-10.9); Hematocrit 18.3 VOL% (42.0-52.0); Hemoglobin 6.8 GM/DL (14.0-18.0); Immature Granulocytes % 0.7 %; Immature Granulocytes Absolute 0.08 #; Lymphocytes % 9.3 % (21.2-54.2); Mean Corpuscular HGB Conc 37.2 GM/DL (32-36); Mean Corpuscular Volume 90.6 FL (87-102); Mean Platelet Volume 10.1 FL (9.6-12.0); Monocytes % 12.7 % (1.7-12.7); Neutrophils % 75.1 % (38.7-73.9); Platelet Count 104 T/CUMM (130-400); Red Blood Count 2.02 MC/CUMM (3.8-5.5); Red Cell Distribution Width 16.1 % (9.3-17.3); White Blood Count 11.2 T/CUMM (4-12)
[2021-04-20 07:53] LABS: Albumin 1.3 G/DL (3.4-5.0); Osmolality,Calculated 280.3 MOS/KG (273-304); Potassium 3.3 MMOL/L (3.5-5.1); Total Protein 4.8 G/DL (6.4-8.2)
[2021-04-20 07:56] LABS: Bilirubin,Total 20.7 MG/DL (0.2-1.0)
[2021-04-20] MEDS ORDERED: SODIUM CHLORIDE 0.9% 1,000 ML IV PRN ×2 (08:00→12:41)
[2021-04-20] MEDS: levETIRAcetam 500 MG TABLET PO SCH ×2 (08:29→22:50)
[2021-04-20] MEDS: FOLIC ACID 1 MG TABLET PO SCH (08:29)
[2021-04-20] MEDS: LACTULOSE 20 GM/30 ML UDCUP PO SCH ×3 (08:29→22:50)
[2021-04-20] MEDS: THIAMINE 100 MG TABLET PO SCH (08:30)
[2021-04-20] MEDS: SODIUM CHLOR 0.9% KCL 20 MEQ 20 MEQ/1,000 ML BAG IV SCH (08:30)
[2021-04-20] MEDS: PANTOPRAZOLE 40 MG TABLET PO SCH (08:30)
[2021-04-20] MEDS ORDERED: POTASSIUM CHLORIDE 20 MEQ PACK PO ONE (08:35)
[2021-04-21] MEDS: PIPERACILLIN/TAZOBACTAM 3,375 MG in SODIUM CHLORIDE 0.9% 100 ML IV SCH ×3 (00:45→16:38)
[2021-04-21 06:28] LABS: Basophils # 0.1 10*3/uL (0.0-0.2); Basophils % 0.8 % (0.0-0.8); Eosinophils # 0.2 10*3/uL (0.0-0.87); Eosinophils % 1.8 % (0.00-10.9); Hematocrit 22.8 VOL% (42.0-52.0); Hemoglobin 7.9 GM/DL (14.0-18.0); Immature Granulocytes % 0.8 %; Immature Granulocytes Absolute 0.08 #; Lymphocytes # 1.1 10*3/uL (1.4-4.0); Lymphocytes % 10.1 % (21.2-54.2); Mean Corpuscular HGB Conc 34.6 GM/DL (32-36); Mean Corpuscular Volume 90.1 FL (87-102); Mean Platelet Volume 9.7 FL (9.6-12.0); Monocytes % 14.2 % (1.7-12.7); Neutrophils % 72.3 % (38.7-73.9); Platelet Count 105 T/CUMM (130-400); Red Blood Count 2.53 MC/CUMM (3.8-5.5); Red Cell Distribution Width 16.3 % (9.3-17.3); White Blood Count 10.5 T/CUMM (4-12)
[2021-04-21 06:55] LABS: Albumin 1.3 G/DL (3.4-5.0); Calcium 8.3 MG/DL (8.5-10.1); Osmolality,Calculated 279.3 MOS/KG (273-304); Potassium 3.2 MMOL/L (3.5-5.1); Total Protein 4.9 G/DL (6.4-8.2)
[2021-04-21 07:00] LABS: Bilirubin,Total 20.6 MG/DL (0.2-1.0)
[2021-04-21] MEDS: SODIUM CHLOR 0.9% KCL 20 MEQ 20 MEQ/1,000 ML BAG IV SCH (07:30)
[2021-04-21] MEDS ORDERED: POTASSIUM CHLORIDE 20 MEQ PACK PO ONE (09:00)
[2021-04-21] MEDS: PANTOPRAZOLE 40 MG TABLET PO SCH (09:29)
[2021-04-21] MEDS: LACTULOSE 20 GM/30 ML UDCUP PO SCH ×3 (09:30→21:31)
[2021-04-21] MEDS: POTASSIUM CHLORIDE 20 MEQ TABLET PO PRN ×3 (09:30→16:38)
[2021-04-21] MEDS: FOLIC ACID 1 MG TABLET PO SCH (09:30)
[2021-04-21] MEDS: levETIRAcetam 500 MG TABLET PO SCH ×2 (09:30→21:31)
[2021-04-21] MEDS: THIAMINE 100 MG TABLET PO SCH (09:30)
[2021-04-21 09:37] LABS: INR 1.6; PT Patient Result 16.9 SECS (10.5-12.0)
[2021-04-21] MEDS ORDERED: FUROSEMIDE 20 MG/2 ML VIAL IV ONE (12:00)
[2021-04-21] MEDS ORDERED: FUROSEMIDE 40 MG/4 ML VIAL IV ONE (12:19)
[2021-04-21] MEDS ORDERED: FUROSEMIDE 40 MG/4 ML VIAL IV SCH (16:00)
[2021-04-22] MEDS: PIPERACILLIN/TAZOBACTAM 3,375 MG in SODIUM CHLORIDE 0.9% 100 ML IV SCH ×3 (00:51→15:45)
[2021-04-22 05:58] LABS: Basophils # 0.1 10*3/uL (0.0-0.2); Basophils % 1.1 % (0.0-0.8); Eosinophils # 0.2 10*3/uL (0.0-0.87); Eosinophils % 1.9 % (0.00-10.9); Hematocrit 23.7 VOL% (42.0-52.0); Hemoglobin 8.5 GM/DL (14.0-18.0); Immature Granulocytes % 0.8 %; Immature Granulocytes Absolute 0.08 #; Lymphocytes # 1.2 10*3/uL (1.4-4.0); Lymphocytes % 12.6 % (21.2-54.2); Mean Corpuscular HGB Conc 35.9 GM/DL (32-36); Mean Corpuscular Volume 87.8 FL (87-102); Monocytes % 12.1 % (1.7-12.7); Neutrophils % 71.5 % (38.7-73.9); Platelet Count 101 T/CUMM (130-400); Red Cell Distribution Width 16.4 % (9.3-17.3); White Blood Count 9.6 T/CUMM (4-12)
[2021-04-22 06:16] LABS: Albumin 1.5 G/DL (3.4-5.0); Calcium 8.3 MG/DL (8.5-10.1); Osmolality,Calculated 275.5 MOS/KG (273-304); Potassium 3.1 MMOL/L (3.5-5.1); Total Protein 5.1 G/DL (6.4-8.2)
[2021-04-22 06:19] LABS: Bilirubin,Total 21.4 MG/DL (0.2-1.0)
[2021-04-22 06:20] LABS: Burr Cells Slight; Hypochromasia 1+; Ovalocytes Slight; Platelet Estimate Decreased
[2021-04-22] MEDS: LACTULOSE 20 GM/30 ML UDCUP PO SCH ×3 (09:35→21:08)
[2021-04-22] MEDS: THIAMINE 100 MG TABLET PO SCH (09:36)
[2021-04-22] MEDS: FOLIC ACID 1 MG TABLET PO SCH (09:36)
[2021-04-22] MEDS: levETIRAcetam 500 MG TABLET PO SCH ×2 (09:36→21:07)
[2021-04-22] MEDS: PANTOPRAZOLE 40 MG TABLET PO SCH (09:36)
[2021-04-23] MEDS: PIPERACILLIN/TAZOBACTAM 3,375 MG in SODIUM CHLORIDE 0.9% 100 ML IV SCH ×3 (00:10→17:52)
[2021-04-23 06:13] LABS: Basophils # 0.1 10*3/uL (0.0-0.2); Basophils % 0.9 % (0.0-0.8); Eosinophils # 0.2 10*3/uL (0.0-0.87); Eosinophils % 1.6 % (0.00-10.9); Hematocrit 22.7 VOL% (42.0-52.0); Immature Granulocytes % 0.5 %; Immature Granulocytes Absolute 0.06 #; Lymphocytes # 1.3 10*3/uL (1.4-4.0); Mean Corpuscular HGB Conc 35.2 GM/DL (32-36); Mean Corpuscular Volume 88.7 FL (87-102); Mean Platelet Volume 10.3 FL (9.6-12.0); Monocytes % 13.1 % (1.7-12.7); Neutrophils % 71.9 % (38.7-73.9); Platelet Count 108 T/CUMM (130-400); Red Blood Count 2.56 MC/CUMM (3.8-5.5); Red Cell Distribution Width 16.3 % (9.3-17.3); White Blood Count 11.2 T/CUMM (4-12)
[2021-04-23 06:52] LABS: Albumin 1.4 G/DL (3.4-5.0); Calcium 8.3 MG/DL (8.5-10.1); Osmolality,Calculated 276.5 MOS/KG (273-304); Potassium 3.1 MMOL/L (3.5-5.1)
[2021-04-23 07:07] LABS: Bilirubin,Total 20.1 MG/DL (0.2-1.0)
[2021-04-23] MEDS ORDERED: FUROSEMIDE 40 MG/4 ML VIAL IV SCH (08:00)
[2021-04-23] MEDS: LACTULOSE 20 GM/30 ML UDCUP PO SCH ×3 (08:16→20:43)
[2021-04-23] MEDS: FOLIC ACID 1 MG TABLET PO SCH (08:17)
[2021-04-23] MEDS: levETIRAcetam 500 MG TABLET PO SCH ×2 (08:17→21:46)
[2021-04-23] MEDS: POTASSIUM CHLORIDE 20 MEQ TABLET PO PRN ×4 (08:17→17:52)
[2021-04-23] MEDS: THIAMINE 100 MG TABLET PO SCH (08:17)
[2021-04-23] MEDS: PANTOPRAZOLE 40 MG TABLET PO SCH (08:17)
[2021-04-23] MEDS: RIFAXIMIN 550 MG TABLET PO SCH ×2 (08:20→20:43)
[2021-04-23] MEDS: POTASSIUM CHLORIDE 20 MEQ/15 ML UDCUP PO SCH (08:21)
[2021-04-23] MEDS ORDERED: METOCLOPRAMIDE 10 MG/2 ML VIAL IV ONE (17:23)
[2021-04-24] MEDS: PIPERACILLIN/TAZOBACTAM 3,375 MG in SODIUM CHLORIDE 0.9% 100 ML IV SCH ×3 (01:20→16:58)
[2021-04-24] MEDS: FOLIC ACID 1 MG TABLET PO SCH (09:24)
[2021-04-24] MEDS: LACTULOSE 20 GM/30 ML UDCUP PO SCH ×3 (09:24→22:47)
[2021-04-24] MEDS: FUROSEMIDE 40 MG/4 ML VIAL IV SCH (09:24)
[2021-04-24] MEDS: PANTOPRAZOLE 40 MG TABLET PO SCH (09:24)
[2021-04-24] MEDS: levETIRAcetam 500 MG TABLET PO SCH ×2 (09:24→22:47)
[2021-04-24] MEDS: THIAMINE 100 MG TABLET PO SCH (09:24)
[2021-04-24] MEDS: RIFAXIMIN 550 MG TABLET PO SCH ×2 (09:24→22:47)
[2021-04-24] MEDS: POTASSIUM CHLORIDE 20 MEQ/15 ML UDCUP PO SCH (09:25)
[2021-04-25] MEDS: PIPERACILLIN/TAZOBACTAM 3,375 MG in SODIUM CHLORIDE 0.9% 100 ML IV SCH ×2 (01:06→09:26)
[2021-04-25] MEDS: FUROSEMIDE 40 MG/4 ML VIAL IV SCH (09:25)
[2021-04-25] MEDS: POTASSIUM CHLORIDE 20 MEQ/15 ML UDCUP PO SCH (09:27)
[2021-04-25] MEDS: THIAMINE 100 MG TABLET PO SCH (09:27)
[2021-04-25] MEDS: levETIRAcetam 500 MG TABLET PO SCH (09:27)
[2021-04-25] MEDS: RIFAXIMIN 550 MG TABLET PO SCH (09:27)
[2021-04-25] MEDS: LACTULOSE 20 GM/30 ML UDCUP PO SCH ×2 (09:27→15:12)
[2021-04-25] MEDS: PANTOPRAZOLE 40 MG TABLET PO SCH (09:27)
[2021-04-25] MEDS: FOLIC ACID 1 MG TABLET PO SCH (09:27)
[2021-04-25] MEDS ORDERED: traMADol 50 MG TABLET PO PRN (11:21)
[2021-04-25] MEDS ORDERED: CYCLOBENZAPRINE 10 MG TABLET PO PRN (11:22)
[2021-04-25 11:35] VITALS: BP 111/67
[2021-04-25] MEDS ORDERED: POTASSIUM CHLORIDE 20 MEQ TABLET PO ONE (13:00)
[2021-04-25] MEDS ORDERED: POTASSIUM CHLORIDE 20 MEQ TABLET PO SCH (21:00)
== END 2021-04-25 15:45 | disposition hospice, home (50) | DRG 871 ==
LOC: EDUNIT# → EDBD → N.ED 07:04 → SUATTDRO 10:33 → N.EDINP 10:33 → N.5E 11:39
PROVIDERS: ADMIT Internal Medicine; ATTEND Hospitalist

== ENCOUNTER 2022-02-26 23:56 | Inpatient (IN) ==
[2022-02-27] MEDS ORDERED: OCTREOTIDE 100 MCG/ML SYRINGE IV STA (00:09)
[2022-02-27] MEDS ORDERED: ONDANSETRON 4 MG/2 ML VIAL IV STA ×2 (00:09→01:35)
[2022-02-27] MEDS ORDERED: SODIUM CHLORIDE 0.9% 1,000 ML IV STA ×2 (00:09→01:10)
[2022-02-27] MEDS ORDERED: PANTOPRAZOLE INJ 80 MG in SODIUM CHLORIDE 0.9% 100 ML IV STA (00:09)
[2022-02-27] MEDS ORDERED: OCTREOTIDE 100 MCG/ML SYRINGE SUBCUT STA (00:23)
[2022-02-27] MEDS ORDERED: PANTOPRAZOLE 40 MG VIAL IV ONE (00:23)
[2022-02-27 00:27] LABS: Basophils # 0.1 10*3/uL (0.0-0.2); Basophils % 0.8 % (0.0-0.8); Eosinophils % 0.3 % (0.00-10.9); Hematocrit 23.6 VOL% (42.0-52.0); Hemoglobin 8.1 GM/DL (14.0-18.0); Immature Granulocytes % 0.4 %; Immature Granulocytes Absolute 0.03 #; Mean Corpuscular HGB Conc 34.3 GM/DL (32-36); Mean Corpuscular Volume 88.4 FL (87-102); Mean Platelet Volume 10.5 FL (9.6-12.0); Monocytes # 0.9 10*3/uL (0.11-0.8); Monocytes % 12.7 % (1.7-12.7); Neutrophils % 57.8 % (38.7-73.9); Platelet Count 82 T/CUMM (130-400); Red Blood Count 2.67 MC/CUMM (3.8-5.5); Red Cell Distribution Width 16.2 % (9.3-17.3); White Blood Count 7.2 T/CUMM (4-12)
[2022-02-27 00:46] LABS: Bilirubin,Total 1.4 MG/DL (0.20-1.00); Calcium 9.2 MG/DL (8.5-10.1); Osmolality,Calculated 288.7 MOS/KG (273-304); Potassium 2.9 MMOL/L (3.5-5.1); Total Protein 7.2 G/DL (6.4-8.2)
[2022-02-27 00:49] LABS: INR 1.4; Partial Thromboplastin Time 30.3 SECS (23.8-32.1)
[2022-02-27 01:55] LABS: Platelet Estimate Adequate
[2022-02-27] MEDS ORDERED: ALBUTEROL 2.5 MG/3 ML NEB RESP TX PRN (02:02)
[2022-02-27] MEDS ORDERED: NOREPINEPHRINE 8 MG in SODIUM CHLORIDE 0.9% 242 ML IV PRN (02:02)
[2022-02-27] MEDS ORDERED: MAGNESIUM SULF RIDER 4 GM/100 ML PREMIX IV PRN (02:06)
[2022-02-27] MEDS ORDERED: SODIUM CHLORIDE 0.9% 1,000 ML IV PRN ×2 (02:08→07:12)
[2022-02-27] MEDS ORDERED: LORazepam 2 MG/1 ML VIAL IV PRN (02:14)
[2022-02-27] MEDS: SODIUM CHLORIDE 0.9% 1,000 ML IV SCH ×4 (02:21→21:31)
[2022-02-27] MEDS: PANTOPRAZOLE INJ 200 MG in SODIUM CHLORIDE 0.9% 250 ML IV SCH (02:22)
[2022-02-27] MEDS: OCTREOTIDE 500 MCG in SODIUM CHLORIDE 0.9% 100 ML IV SCH ×4 (02:22→22:46)
[2022-02-27] MEDS: POTASSIUM CHLORIDE RIDER 10 MEQ/100 ML PREMIX IV PRN ×4 (02:49→11:28)
[2022-02-27] MEDS: MAGNESIUM SULF RIDER 2 GM/50 ML PREMIX IV PRN (02:50)
[2022-02-27] MEDS ORDERED: THIAMINE INJ 100 MG, FOLIC ACID INJ 1 MG, MULTIVITAMIN INJ 10 ML in SODIUM CHLORIDE 0.9... IV ONE (03:00)
[2022-02-27 04:58] LABS: Basophils % 0.4 % (0.0-0.8); Hematocrit 18.7 VOL% (42.0-52.0); Immature Granulocytes % 0.6 %; Immature Granulocytes Absolute 0.03 #; Lymphocytes # 1.1 10*3/uL (1.4-4.0); Lymphocytes % 20.3 % (21.2-54.2); Mean Corpuscular HGB Conc 33.2 GM/DL (32-36); Mean Corpuscular Volume 90.3 FL (87-102); Mean Platelet Volume 10.4 FL (9.6-12.0); Monocytes # 0.5 10*3/uL (0.11-0.8); Monocytes % 9.4 % (1.7-12.7); Neutrophils % 69.3 % (38.7-73.9); Platelet Count 47 T/CUMM (130-400); Red Blood Count 2.07 MC/CUMM (3.8-5.5); Red Cell Distribution Width 16.4 % (9.3-17.3); White Blood Count 5.4 T/CUMM (4-12)
[2022-02-27 05:03] LABS: Hemoglobin 6.2 GM/DL (14.0-18.0)
[2022-02-27 05:19] LABS: Platelet Estimate Decreased
[2022-02-27 05:23] LABS: Albumin 2.5 G/DL (3.4-5.0); Bilirubin,Total 1.1 MG/DL (0.20-1.00); Calcium 8.1 MG/DL (8.5-10.1); Osmolality,Calculated 287.8 MOS/KG (273-304); Potassium 3.4 MMOL/L (3.5-5.1); Total Protein 5.9 G/DL (6.4-8.2)
[2022-02-27] MEDS: ONDANSETRON 4 MG/2 ML VIAL IV PRN ×3 (05:58→21:44)
[2022-02-27] MEDS: LORazepam 2 MG/1 ML VIAL IV PRN ×2 (06:30→13:11)
[2022-02-27] MEDS ORDERED: propofoL 200 MG/20 ML VIAL IV ONE (09:14)
[2022-02-27] MEDS ORDERED: LIDOCAINE 2% 5 ML VIAL ONE (09:14)
[2022-02-27 10:42] LABS: Hematocrit 21.7 VOL% (42.0-52.0); Hemoglobin 7.1 GM/DL (14.0-18.0)
[2022-02-27] MEDS: METOCLOPRAMIDE 10 MG/2 ML VIAL IV SCH ×2 (11:34→17:50)
[2022-02-27 16:06] LABS: Hematocrit 22.7 VOL% (42.0-52.0); Hemoglobin 7.6 GM/DL (14.0-18.0)
[2022-02-27] MEDS: ACETAMINOPHEN 325 MG TABLET PO PRN ×2 (16:17→21:44)
[2022-02-27] MEDS: MELATONIN 3 MG TABLET PO PRN (21:50)
[2022-02-27 22:01] LABS: Hematocrit 20.9 VOL% (42.0-52.0); Hemoglobin 7.2 GM/DL (14.0-18.0)
[2022-02-28] MEDS: METOCLOPRAMIDE 10 MG/2 ML VIAL IV SCH ×4 (00:07→17:30)
[2022-02-28] MEDS: PANTOPRAZOLE INJ 200 MG in SODIUM CHLORIDE 0.9% 250 ML IV SCH ×2 (02:01→06:01)
[2022-02-28] MEDS: SODIUM CHLORIDE 0.9% 1,000 ML IV SCH ×5 (04:36→17:33)
[2022-02-28 04:55] LABS: Basophils % 0.2 % (0.0-0.8); Eosinophils % 0.7 % (0.00-10.9); Hematocrit 21.6 VOL% (42.0-52.0); Hemoglobin 7.4 GM/DL (14.0-18.0); Immature Granulocytes % 0.6 %; Immature Granulocytes Absolute 0.03 #; Lymphocytes % 17.8 % (21.2-54.2); Mean Corpuscular HGB Conc 34.3 GM/DL (32-36); Mean Corpuscular Volume 88.2 FL (87-102); Monocytes # 0.4 10*3/uL (0.11-0.8); Monocytes % 6.5 % (1.7-12.7); Neutrophils % 74.2 % (38.7-73.9); Red Blood Count 2.45 MC/CUMM (3.8-5.5); Red Cell Distribution Width 16.8 % (9.3-17.3); White Blood Count 5.4 T/CUMM (4-12)
[2022-02-28 04:57] LABS: Platelet Count 34 T/CUMM (130-400)
[2022-02-28 05:05] LABS: Albumin 2.4 G/DL (3.4-5.0); Bilirubin,Total 1.8 MG/DL (0.20-1.00); Calcium 7.1 MG/DL (8.5-10.1); Osmolality,Calculated 288.3 MOS/KG (273-304); Potassium 3.4 MMOL/L (3.5-5.1); Total Protein 5.5 G/DL (6.4-8.2)
[2022-02-28 05:27] LABS: Anisocytosis 1+; Platelet Estimate Decreased
[2022-02-28 05:28] LABS: Macrocytosis Slight
[2022-02-28] MEDS: POTASSIUM CHLORIDE RIDER 10 MEQ/100 ML PREMIX IV PRN ×3 (05:40→08:39)
[2022-02-28] MEDS: MAGNESIUM SULF RIDER 2 GM/50 ML PREMIX IV PRN (05:40)
[2022-02-28] MEDS: OCTREOTIDE 500 MCG in SODIUM CHLORIDE 0.9% 100 ML IV SCH ×3 (08:15→17:33)
[2022-02-28] MEDS ORDERED: SODIUM CHLORIDE 0.9% 1,000 ML IV PRN (09:15)
[2022-02-28] MEDS: THIAMINE INJ 100 MG, FOLIC ACID INJ 1 MG, MULTIVITAMIN INJ 10 ML in SODIUM CHLORIDE 0.9... IV SCH (09:29)
[2022-02-28] MEDS: ONDANSETRON 4 MG/2 ML VIAL IV PRN (19:35)
[2022-03-01] MEDS: MELATONIN 3 MG TABLET PO PRN (00:15)
[2022-03-01] MEDS: METOCLOPRAMIDE 10 MG/2 ML VIAL IV SCH ×4 (00:30→17:41)
[2022-03-01] MEDS: SODIUM CHLORIDE 0.9% 1,000 ML IV SCH ×4 (03:08→17:41)
[2022-03-01 03:44] LABS: Basophils % 0.3 % (0.0-0.8); Eosinophils # 0.1 10*3/uL (0.0-0.87); Eosinophils % 1.6 % (0.00-10.9); Hematocrit 23.6 VOL% (42.0-52.0); Immature Granulocytes % 1.1 %; Immature Granulocytes Absolute 0.04 #; Lymphocytes # 0.9 10*3/uL (1.4-4.0); Lymphocytes % 23.3 % (21.2-54.2); Mean Corpuscular HGB Conc 33.9 GM/DL (32-36); Mean Corpuscular Volume 89.1 FL (87-102); Mean Platelet Volume 10.4 FL (9.6-12.0); Monocytes # 0.3 10*3/uL (0.11-0.8); Monocytes % 9.3 % (1.7-12.7); Neutrophils % 64.4 % (38.7-73.9); Platelet Count 47 T/CUMM (130-400); Red Blood Count 2.65 MC/CUMM (3.8-5.5); Red Cell Distribution Width 16.9 % (9.3-17.3); White Blood Count 3.7 T/CUMM (4-12)
[2022-03-01 03:57] LABS: INR 1.2; PT Patient Result 13.5 SECS (10.5-12.0)
[2022-03-01 04:10] LABS: Albumin 2.5 G/DL (3.4-5.0); Bilirubin,Total 1.5 MG/DL (0.20-1.00); Osmolality,Calculated 281.3 MOS/KG (273-304); Potassium 3.7 MMOL/L (3.5-5.1); Total Protein 5.7 G/DL (6.4-8.2)
[2022-03-01 04:12] LABS: Microcytosis Slight; Platelet Estimate Decreased
[2022-03-01] MEDS: MAGNESIUM SULF RIDER 2 GM/50 ML PREMIX IV PRN (04:40)
[2022-03-01] MEDS: POTASSIUM CHLORIDE RIDER 10 MEQ/100 ML PREMIX IV PRN ×2 (04:40→05:41)
[2022-03-01] MEDS ORDERED: SODIUM CHLORIDE 0.9% 1,000 ML IV PRN ×2 (07:51→07:56)
[2022-03-01] MEDS: PANTOPRAZOLE 40 MG VIAL IV SCH ×2 (09:10→21:17)
[2022-03-01] MEDS: THIAMINE INJ 100 MG, FOLIC ACID INJ 1 MG, MULTIVITAMIN INJ 10 ML in SODIUM CHLORIDE 0.9... IV SCH (09:15)
[2022-03-01] MEDS: PROPRANOLOL 10 MG TABLET PO SCH ×3 (09:45→21:17)
[2022-03-02] MEDS: METOCLOPRAMIDE 10 MG/2 ML VIAL IV SCH ×2 (01:07→05:37)
[2022-03-02] MEDS: SODIUM CHLORIDE 0.9% 1,000 ML IV SCH ×3 (01:10→09:30)
[2022-03-02 03:51] LABS: Basophils % 0.2 % (0.0-0.8); Eosinophils # 0.1 10*3/uL (0.0-0.87); Eosinophils % 1.7 % (0.00-10.9); Hematocrit 24.9 VOL% (42.0-52.0); Hemoglobin 8.2 GM/DL (14.0-18.0); Immature Granulocytes % 0.6 %; Immature Granulocytes Absolute 0.03 #; Lymphocytes # 1.2 10*3/uL (1.4-4.0); Lymphocytes % 26.2 % (21.2-54.2); Mean Corpuscular HGB Conc 32.9 GM/DL (32-36); Mean Corpuscular Volume 90.2 FL (87-102); Mean Platelet Volume 10.3 FL (9.6-12.0); Monocytes # 0.4 10*3/uL (0.11-0.8); Monocytes % 9.5 % (1.7-12.7); NRBC # 0.02 10*3/uL; Neutrophils % 61.8 % (38.7-73.9); Platelet Count 66 T/CUMM (130-400); Red Blood Count 2.76 MC/CUMM (3.8-5.5); Red Cell Distribution Width 17.3 % (9.3-17.3); White Blood Count 4.7 T/CUMM (4-12)
[2022-03-02 04:07] LABS: Albumin 2.7 G/DL (3.4-5.0); Bilirubin,Total 1.9 MG/DL (0.20-1.00); Calcium 8.6 MG/DL (8.5-10.1); Osmolality,Calculated 275.5 MOS/KG (273-304); Potassium 3.6 MMOL/L (3.5-5.1); Total Protein 6.3 G/DL (6.4-8.2)
[2022-03-02] MEDS ORDERED: POTASSIUM BICARB EFFERVESCENT 20 MEQ TAB.EFF PO PRN (05:01)
[2022-03-02] MEDS: THIAMINE INJ 100 MG, FOLIC ACID INJ 1 MG, MULTIVITAMIN INJ 10 ML in SODIUM CHLORIDE 0.9... IV SCH (09:16)
[2022-03-02] MEDS: PANTOPRAZOLE 40 MG VIAL IV SCH (09:30)
[2022-03-02] MEDS: PROPRANOLOL 10 MG TABLET PO SCH (09:30)
[2022-03-02 09:41] VITALS: BP 138/67
== END 2022-03-02 11:32 | disposition home or self-care (01) | DRG 280 ==
LOC: EDBD → EDUNIT# → N.ED 23:56 → SUATTDRO 02-27 01:27 → N.EDINP 02-27 01:27 → N.CC 02-27 02:00
PROVIDERS: ADMIT Internal Medicine; ATTEND Internal Medicine
PROC: EGDWEBL (ICD-10-PCS; 2022-02-27 08:35)

== ENCOUNTER 2022-05-15 10:05 | Inpatient (IN) ==
[2022-05-15] MEDS ORDERED: THIAMINE INJ 100 MG, FOLIC ACID INJ 1 MG, MAGNESIUM SULF INJ 2 GM, MULTIVITAMIN INJ 10 ... IV STA (10:27)
[2022-05-15] MEDS ORDERED: THIAMINE 200 MG/2 ML VIAL IV STA (10:27)
[2022-05-15] MEDS ORDERED: SODIUM CHLORIDE 0.9% 1,000 ML IV STA ×2 (10:27→12:18)
[2022-05-15 11:22] LABS: Basophils % 0.5 % (0.0-0.8); Hematocrit 31.6 VOL% (42.0-52.0); Hemoglobin 11.1 GM/DL (14.0-18.0); Immature Granulocytes % 0.7 %; Immature Granulocytes Absolute 0.03 #; Lymphocytes # 0.5 10*3/uL (1.4-4.0); Lymphocytes % 11.4 % (21.2-54.2); Mean Corpuscular HGB Conc 35.1 GM/DL (32-36); Mean Corpuscular Volume 90.3 FL (87-102); Mean Platelet Volume 10.8 FL (9.6-12.0); Monocytes # 0.6 10*3/uL (0.11-0.8); Monocytes % 13.6 % (1.7-12.7); Neutrophils % 73.8 % (38.7-73.9); Platelet Count 45 T/CUMM (130-400)
[2022-05-15 11:38] LABS: Alanine Aminotransferase 79 U/L (16-61); Albumin 3.5 G/DL (3.4-5.0); Alkaline Phosphatase 173 U/L (45-117); Aspartate Amino Transferase 222 U/L (0-37); Blood Urea Nitrogen 28 MG/DL (7-18); Calcium 9.6 MG/DL (8.5-10.1); Carbon Dioxide 24 MMOL/L (21-32); Chloride 96 MMOL/L (98-107); Glucose 115 MG/DL (74-106); Osmolality,Calculated 270.5 MOS/KG (273-304); Potassium 3.5 MMOL/L (3.5-5.1); Sodium 132 MMOL/L (136-145); Total Protein 8.2 G/DL (6.4-8.2)
[2022-05-15 11:43] LABS: Anisocytosis 1+; Macrocytosis Slight; Platelet Estimate Decreased
[2022-05-15 11:54] LABS: Mucus,Urine Occasional /LPF (Occasional); RBC,Urine 1 /HPF (0-4); Squamous Epithelial Cell,Urine Occasional /HPF (0-10); Urine Appearance Clear (Clear); Urine Color Yellow (Yellow); Urine Specific Gravity 1.015 (1.001-1.035)
[2022-05-15 11:55] LABS: Bilirubin,Urine Small mg/dL (Negative); Blood, Urine Small mg/dL (Negative); Glucose,Urine (UA) Negative (Negative); Ketones,Urine Trace mg/dL (Negative); Nitrite,Urine Negative (Negative); Protein,Urine 100 mg/dL (Negative)
[2022-05-15 12:00] LABS: Barbiturates Screen,Urine Negative (Negative); Benzodiazepines Screen,Urine Negative (Negative); Cannabinoid Screen,Urine Negative (Negative); Opiate Screen,Urine Negative (Negative); Phencyclidine Screen,Urine Negative (Negative)
[2022-05-15] MEDS ORDERED: ACETAMINOPHEN 500 MG TABLET PO STA (12:40)
[2022-05-15] MEDS ORDERED: cefTRIAXone 1,000 MG in SODIUM CHLORIDE 0.9% 100 ML IV STA (12:41)
[2022-05-15] MEDS ORDERED: ALBUTEROL 2.5 MG/3 ML NEB RESP TX PRN (13:19)
[2022-05-15] MEDS: OXAZEPAM 10 MG CAPSULE PO SCH ×2 (15:01→20:29)
[2022-05-15] MEDS: SODIUM CHLORIDE 0.9% 1,000 ML IV SCH ×2 (15:26→23:28)
[2022-05-15] MEDS ORDERED: DIAZEPAM 10 MG/2 ML SYRINGE IV PRN (18:54)
[2022-05-15 19:46] VITALS: BP 108/60
[2022-05-15] MEDS: PANTOPRAZOLE 40 MG VIAL IV SCH (20:31)
[2022-05-16 03:46] LABS: INR 1.1; PT Patient Result 12.5 SECS (10.5-12.0)
[2022-05-16 04:07] LABS: Albumin 2.8 G/DL (3.4-5.0); Bilirubin,Total 2.4 MG/DL (0.20-1.00); Calcium 8.6 MG/DL (8.5-10.1); Osmolality,Calculated 270.1 MOS/KG (273-304); Potassium 3.1 MMOL/L (3.5-5.1); Risk Ratio 2.19; Thyroid Stimulating Hormone 2.19 uIU/ml (0.358-3.74); Total Protein 6.7 G/DL (6.4-8.2); VLDL Cholesterol 11.4 MG/DL
[2022-05-16 04:23] LABS: Basophils % 0.7 % (0.0-0.8); Eosinophils % 0.7 % (0.00-10.9); Hematocrit 25.6 VOL% (42.0-52.0); Immature Granulocytes % 0.3 %; Immature Granulocytes Absolute 0.01 #; Lymphocytes % 31.9 % (21.2-54.2); Mean Corpuscular HGB Conc 35.5 GM/DL (32-36); Mean Corpuscular Volume 89.2 FL (87-102); Mean Platelet Volume 11.3 FL (9.6-12.0); Monocytes # 0.5 10*3/uL (0.11-0.8); Monocytes % 15.4 % (1.7-12.7); Red Blood Count 2.87 MC/CUMM (3.8-5.5); Red Cell Distribution Width 15.9 % (9.3-17.3)
[2022-05-16 04:25] LABS: Hemoglobin 9.1 GM/DL (14.0-18.0); Platelet Count 30 T/CUMM (130-400)
[2022-05-16] MEDS ORDERED: POTASSIUM CHLORIDE 20 MEQ TABLET PO ONE (04:31)
[2022-05-16 04:47] LABS: Platelet Estimate Decreased
[2022-05-16] MEDS: SODIUM CHLORIDE 0.9% 1,000 ML IV SCH (08:16)
[2022-05-16] MEDS: PANTOPRAZOLE 40 MG VIAL IV SCH (08:49)
[2022-05-16] MEDS: OXAZEPAM 10 MG CAPSULE PO SCH (08:50)
[2022-05-16] MEDS ORDERED: MULTIVITAMIN (CENTRUM) TABLET PO SCH (09:00)
[2022-05-16] MEDS ORDERED: FUROSEMIDE 40 MG TABLET PO SCH (09:00)
[2022-05-16] MEDS ORDERED: RIFAXIMIN 550 MG TABLET PO SCH (09:00)
[2022-05-16] MEDS ORDERED: FOLIC ACID 1 MG TABLET PO SCH (09:00)
[2022-05-16] MEDS ORDERED: SPIRONOLACTONE 25 MG TABLET PO SCH (09:00)
[2022-05-16] MEDS ORDERED: PROPRANOLOL 10 MG TABLET PO SCH ×2 (09:00)
[2022-05-16] MEDS ORDERED: LACTULOSE 20 GM/30 ML UDCUP PO SCH (14:00)
== END 2022-05-16 12:47 | disposition home or self-care (01) | DRG 53 ==
LOC: N.ED 10:05 → N.EDINP 13:02 → N.CC 13:59
PROVIDERS: ADMIT Internal Medicine; ATTEND Internal Medicine

== ENCOUNTER 2022-06-15 06:29 | Inpatient (IN) ==
[2022-06-15] MEDS ORDERED: SODIUM CHLORIDE 0.9% 1,000 ML IV STA (06:43)
[2022-06-15] MEDS ORDERED: ONDANSETRON 4 MG/2 ML VIAL IV STA (06:46)
[2022-06-15] MEDS ORDERED: PANTOPRAZOLE INJ 80 MG in SODIUM CHLORIDE 0.9% 100 ML IV ONE (06:47)
[2022-06-15 06:53] LABS: Basophils % 0.4 % (0.0-0.8); Eosinophils % 0.2 % (0.00-10.9); Hematocrit 32.9 VOL% (42.0-52.0); Hemoglobin 11.7 GM/DL (14.0-18.0); Immature Granulocytes % 0.4 %; Immature Granulocytes Absolute 0.02 #; Lymphocytes # 0.7 10*3/uL (1.4-4.0); Lymphocytes % 14.7 % (21.2-54.2); Mean Corpuscular HGB Conc 35.6 GM/DL (32-36); Mean Corpuscular Volume 89.6 FL (87-102); Mean Platelet Volume 10.8 FL (9.6-12.0); Monocytes # 0.7 10*3/uL (0.11-0.8); Monocytes % 15.8 % (1.7-12.7); Neutrophils % 68.5 % (38.7-73.9); Red Blood Count 3.67 MC/CUMM (3.8-5.5); Red Cell Distribution Width 15.7 % (9.3-17.3); White Blood Count 4.5 T/CUMM (4-12)
[2022-06-15 06:57] LABS: Platelet Count 31 T/CUMM (130-400)
[2022-06-15 07:02] LABS: INR 1.2; PT Patient Result 12.8 SECS (10.1-12.1); Partial Thromboplastin Time 28.5 SECS (23.7-32.9)
[2022-06-15 07:12] LABS: Alanine Aminotransferase 68 U/L (16-61); Albumin 3.7 G/DL (3.4-5.0); Alkaline Phosphatase 178 U/L (45-117); Aspartate Amino Transferase 166 U/L (0-37); Blood Urea Nitrogen 19 MG/DL (7-18); Calcium 9.3 MG/DL (8.5-10.1); Carbon Dioxide 23 MMOL/L (21-32); Chloride 92 MMOL/L (98-107); Glucose 101 MG/DL (74-106); Osmolality,Calculated 271.1 MOS/KG (273-304); Potassium 3.3 MMOL/L (3.5-5.1); Sodium 135 MMOL/L (136-145); Total Protein 8.7 G/DL (6.4-8.2)
[2022-06-15 07:14] LABS: Lymphocytes 18 % (20-55); Platelet Estimate Decreased; Total Cells Counted 100
[2022-06-15] MEDS ORDERED: GLUCAGON 1 MG VIAL IM PRN (08:33)
[2022-06-15] MEDS ORDERED: DOCUSATE SODIUM 100 MG CAPSULE PO PRN (08:33)
[2022-06-15] MEDS ORDERED: ALBUTEROL 2.5 MG/3 ML NEB RESP TX PRN (08:33)
[2022-06-15] MEDS ORDERED: ONDANSETRON 4 MG/2 ML VIAL IV PRN (08:37)
[2022-06-15] MEDS ORDERED: DEXTROSE 10% 250 ML BAG IV PRN (08:38)
[2022-06-15] MEDS ORDERED: LORazepam 1 MG TABLET PO PRN (08:40)
[2022-06-15] MEDS ORDERED: MAGNESIUM SULF RIDER 2 GM/50 ML PREMIX IV PRN (10:00)
[2022-06-15] MEDS ORDERED: POTASSIUM CHLORIDE 20 MEQ TABLET PO ONE (10:00)
[2022-06-15] MEDS ORDERED: POTASSIUM CHLORIDE RIDER 10 MEQ/100 ML PREMIX IV PRN (10:00)
[2022-06-15] MEDS ORDERED: MAGNESIUM SULF RIDER 4 GM/100 ML PREMIX IV PRN (10:00)
[2022-06-15] MEDS: levETIRAcetam 500 MG TABLET PO SCH ×2 (10:42→21:00)
[2022-06-15] MEDS: ESCITALOPRAM 10 MG TABLET PO SCH (10:42)
[2022-06-15] MEDS: PROPRANOLOL 10 MG TABLET PO SCH ×3 (10:42→21:00)
[2022-06-15] MEDS: FUROSEMIDE 40 MG TABLET PO SCH (10:42)
[2022-06-15] MEDS: SPIRONOLACTONE 50 MG TABLET PO SCH (10:42)
[2022-06-15] MEDS: RIFAXIMIN 550 MG TABLET PO SCH ×2 (10:43→21:00)
[2022-06-15] MEDS ORDERED: MAGNESIUM SULF INJ 3 GM in SODIUM CHLORIDE 0.9% 100 ML IV ONE (11:00)
[2022-06-15] MEDS: SODIUM CHLORIDE 0.9% 1,000 ML IV SCH (11:23)
[2022-06-15] MEDS: OCTREOTIDE 500 MCG in SODIUM CHLORIDE 0.9% 100 ML IV SCH (11:26)
[2022-06-15 11:58] LABS: Hematocrit 29.6 VOL% (42.0-52.0); Hemoglobin 10.4 GM/DL (14.0-18.0)
[2022-06-15] MEDS ORDERED: SODIUM CHLORIDE 0.9% 1,000 ML IV PRN (14:29)
[2022-06-15 15:10] LABS: Hematocrit 29.8 VOL% (42.0-52.0); Hemoglobin 10.4 GM/DL (14.0-18.0)
[2022-06-15 18:28] LABS: Hematocrit 28.8 VOL% (42.0-52.0); Hemoglobin 9.9 GM/DL (14.0-18.0)
[2022-06-16 04:24] LABS: Basophils % 0.9 % (0.0-0.8); Eosinophils # 0.1 10*3/uL (0.0-0.87); Hematocrit 30.5 VOL% (42.0-52.0); Hemoglobin 10.5 GM/DL (14.0-18.0); Immature Granulocytes % 0.4 %; Immature Granulocytes Absolute 0.01 #; Lymphocytes # 0.7 10*3/uL (1.4-4.0); Lymphocytes % 28.9 % (21.2-54.2); Mean Corpuscular HGB Conc 34.4 GM/DL (32-36); Mean Corpuscular Volume 91.3 FL (87-102); Mean Platelet Volume 12.6 FL (9.6-12.0); Monocytes # 0.3 10*3/uL (0.11-0.8); Monocytes % 14.7 % (1.7-12.7); Neutrophils % 52.1 % (38.7-73.9); Red Blood Count 3.34 MC/CUMM (3.8-5.5); Red Cell Distribution Width 15.8 % (9.3-17.3); White Blood Count 2.3 T/CUMM (4-12)
[2022-06-16 04:34] LABS: Platelet Count 26 T/CUMM (130-400)
[2022-06-16 04:47] LABS: Albumin 3.2 G/DL (3.4-5.0); Bilirubin,Total 2.7 MG/DL (0.20-1.00); Calcium 8.7 MG/DL (8.5-10.1); Osmolality,Calculated 268.5 MOS/KG (273-304); Potassium 3.4 MMOL/L (3.5-5.1); Total Protein 7.6 G/DL (6.4-8.2)
[2022-06-16 05:01] LABS: Eosinophils 3 % (0-10); Lymphocytes 28 % (20-55); Platelet Estimate Decreased; Total Cells Counted 100
[2022-06-16 05:02] LABS: Hypochromia Slight; Microcytosis Slight
[2022-06-16] MEDS ORDERED: SODIUM CHLORIDE 0.9% 1,000 ML IV PRN (05:04)
[2022-06-16] MEDS: OCTREOTIDE 500 MCG in SODIUM CHLORIDE 0.9% 100 ML IV SCH (05:34)
[2022-06-16 06:14] LABS: Hematocrit 31.9 VOL% (42.0-52.0); Hemoglobin 10.8 GM/DL (14.0-18.0)
[2022-06-16] MEDS ORDERED: LIDOCAINE 2% 5 ML VIAL ONE (08:50)
[2022-06-16] MEDS ORDERED: propofoL 200 MG/20 ML VIAL IV ONE (08:50)
[2022-06-16] MEDS ORDERED: KETAMINE 500 MG/10 ML VIAL ONE (08:56)
[2022-06-16] MEDS ORDERED: GLYCOPYRROLATE 0.4 MG/2 ML VIAL ONE (09:08)
[2022-06-16] MEDS: ESCITALOPRAM 10 MG TABLET PO SCH (10:41)
[2022-06-16] MEDS: SPIRONOLACTONE 50 MG TABLET PO SCH (10:41)
[2022-06-16] MEDS: FUROSEMIDE 40 MG TABLET PO SCH (10:42)
[2022-06-16] MEDS: RIFAXIMIN 550 MG TABLET PO SCH ×2 (10:42→22:04)
[2022-06-16] MEDS: levETIRAcetam 500 MG TABLET PO SCH ×2 (10:42→22:04)
[2022-06-16] MEDS: PROPRANOLOL 10 MG TABLET PO SCH ×3 (10:42→22:04)
[2022-06-16] MEDS: SODIUM CHLORIDE 0.9% 1,000 ML IV SCH (10:51)
[2022-06-16 14:46] LABS: Hematocrit 28.9 VOL% (42.0-52.0); Hemoglobin 10.1 GM/DL (14.0-18.0)
[2022-06-16] MEDS ORDERED: oxyCODONE/ACETAMINOPHEN 5-325 MG TABLET PO PRN (17:30)
[2022-06-16] MEDS ORDERED: ALUM/MAG/SIMETH/LIDO VISC 1:1 30 ML BOTTLE PO PRN (17:30)
[2022-06-17] MEDS: OCTREOTIDE 500 MCG in SODIUM CHLORIDE 0.9% 100 ML IV SCH (02:57)
[2022-06-17] MEDS: SODIUM CHLORIDE 0.9% 1,000 ML IV SCH ×2 (02:58→21:43)
[2022-06-17 05:27] LABS: Basophils % 0.6 % (0.0-0.8); Eosinophils # 0.1 10*3/uL (0.0-0.87); Eosinophils % 1.9 % (0.00-10.9); Hematocrit 28.2 VOL% (42.0-52.0); Hemoglobin 9.7 GM/DL (14.0-18.0); Immature Granulocytes % 0.3 %; Immature Granulocytes Absolute 0.01 #; Lymphocytes # 0.7 10*3/uL (1.4-4.0); Lymphocytes % 18.3 % (21.2-54.2); Mean Corpuscular HGB Conc 34.4 GM/DL (32-36); Mean Corpuscular Volume 92.5 FL (87-102); Mean Platelet Volume 10.8 FL (9.6-12.0); Monocytes # 0.6 10*3/uL (0.11-0.8); Monocytes % 16.6 % (1.7-12.7); Neutrophils % 62.3 % (38.7-73.9); Red Blood Count 3.05 MC/CUMM (3.8-5.5); Red Cell Distribution Width 15.6 % (9.3-17.3); White Blood Count 3.6 T/CUMM (4-12)
[2022-06-17 05:31] LABS: Platelet Count 37 T/CUMM (130-400)
[2022-06-17 05:49] LABS: Albumin 3.1 G/DL (3.4-5.0); Bilirubin,Total 2.6 MG/DL (0.20-1.00); Calcium 8.9 MG/DL (8.5-10.1); Osmolality,Calculated 266.4 MOS/KG (273-304); Potassium 3.2 MMOL/L (3.5-5.1); Total Protein 7.4 G/DL (6.4-8.2)
[2022-06-17 05:50] LABS: Eosinophils 2 % (0-10); Hypochromia Slight; Lymphocytes 18 % (20-55); Platelet Estimate Decreased; Total Cells Counted 100
[2022-06-17] MEDS: PROPRANOLOL 10 MG TABLET PO SCH ×3 (09:49→21:44)
[2022-06-17] MEDS: ESCITALOPRAM 10 MG TABLET PO SCH (09:49)
[2022-06-17] MEDS: FUROSEMIDE 40 MG TABLET PO SCH (09:49)
[2022-06-17] MEDS: SPIRONOLACTONE 50 MG TABLET PO SCH (09:49)
[2022-06-17] MEDS: RIFAXIMIN 550 MG TABLET PO SCH ×2 (09:49→21:44)
[2022-06-17] MEDS: levETIRAcetam 500 MG TABLET PO SCH ×2 (09:49→21:44)
[2022-06-18 05:26] LABS: Basophils % 0.6 % (0.0-0.8); Eosinophils # 0.1 10*3/uL (0.0-0.87); Eosinophils % 1.4 % (0.00-10.9); Hematocrit 27.7 VOL% (42.0-52.0); Hemoglobin 9.4 GM/DL (14.0-18.0); Immature Granulocytes % 0.3 %; Immature Granulocytes Absolute 0.01 #; Lymphocytes # 0.6 10*3/uL (1.4-4.0); Lymphocytes % 18.2 % (21.2-54.2); Mean Corpuscular HGB Conc 33.9 GM/DL (32-36); Mean Corpuscular Volume 94.2 FL (87-102); Monocytes # 0.8 10*3/uL (0.11-0.8); Monocytes % 21.7 % (1.7-12.7); Neutrophils % 57.8 % (38.7-73.9); Platelet Count 45 T/CUMM (130-400); Red Blood Count 2.94 MC/CUMM (3.8-5.5); Red Cell Distribution Width 15.7 % (9.3-17.3); White Blood Count 3.5 T/CUMM (4-12)
[2022-06-18 05:46] LABS: Albumin 2.9 G/DL (3.4-5.0); Bilirubin,Total 2.2 MG/DL (0.20-1.00); Calcium 8.5 MG/DL (8.5-10.1); Osmolality,Calculated 273.8 MOS/KG (273-304); Potassium 3.4 MMOL/L (3.5-5.1); Total Protein 7.2 G/DL (6.4-8.2)
[2022-06-18 05:52] LABS: Atypical Lymphocytes Few; Eosinophils 5 % (0-10); Lymphocytes 21 % (20-55); Microcytosis Slight; Total Cells Counted 100
[2022-06-18 05:53] LABS: Platelet Estimate Decreased; Target Cells Slight
[2022-06-18] MEDS: RIFAXIMIN 550 MG TABLET PO SCH (08:06)
[2022-06-18] MEDS: FUROSEMIDE 40 MG TABLET PO SCH (08:06)
[2022-06-18] MEDS: ESCITALOPRAM 10 MG TABLET PO SCH (08:06)
[2022-06-18] MEDS: levETIRAcetam 500 MG TABLET PO SCH (08:06)
[2022-06-18] MEDS: SPIRONOLACTONE 50 MG TABLET PO SCH (08:06)
[2022-06-18] MEDS: PROPRANOLOL 10 MG TABLET PO SCH (08:06)
[2022-06-18] MEDS ORDERED: POTASSIUM CHLORIDE 20 MEQ TABLET PO ONE (08:11)
[2022-06-18 10:04] VITALS: BP 113/72
== END 2022-06-18 10:47 | disposition home or self-care (01) | DRG 280 ==
LOC: EDBD → EDUNIT# → N.ED 06:29 → N.EDINP 08:32 → SUATTDRO 08:32 → N.EDINP 09:05 → N.TELEN 09:15
PROVIDERS: ADMIT Internal Medicine; ATTEND Hospitalist
PROC: EGDWEBL (ICD-10-PCS; 2022-06-16 07:35)

== ENCOUNTER 2022-10-26 00:29 | Inpatient (IN) ==
[2022-10-26] MEDS ORDERED: SODIUM CHLORIDE 0.9% 1,000 ML IV STA (01:01)
[2022-10-26] MEDS ORDERED: PANTOPRAZOLE 40 MG VIAL IV STA (01:03)
[2022-10-26 01:04] LABS: Basophils # 0.1 10*3/uL (0.0-0.2); Basophils % 0.6 % (0.0-0.8); Eosinophils # 0.1 10*3/uL (0.0-0.87); Eosinophils % 0.5 % (0.00-10.9); Hematocrit 20.6 VOL% (42.0-52.0); Hemoglobin 7.8 GM/DL (14.0-18.0); Immature Granulocytes % 0.8 %; Immature Granulocytes Absolute 0.09 #; Lymphocytes % 18.1 % (21.2-54.2); Mean Corpuscular HGB Conc 37.9 GM/DL (32-36); Mean Corpuscular Volume 92.4 FL (87-102); Mean Platelet Volume 11.8 FL (9.6-12.0); Monocytes % 8.7 % (1.7-12.7); NRBC # 0.03 10*3/uL; Neutrophils % 71.3 % (38.7-73.9); Platelet Count 66 T/CUMM (130-400); Red Blood Count 2.23 MC/CUMM (3.8-5.5); Red Cell Distribution Width 23.7 % (9.3-17.3); White Blood Count 11.1 T/CUMM (4-12)
[2022-10-26] MEDS: ONDANSETRON 4 MG/2 ML VIAL IV PRN ×2 (01:15→06:48)
[2022-10-26 01:22] LABS: Platelet Estimate Decreased
[2022-10-26 01:23] LABS: Anisocytosis Slight; Hypochromia 1+; Polychromasia Slight; Target Cells 2+
[2022-10-26 01:24] LABS: Albumin 2.1 G/DL (3.4-5.0); Calcium 8.2 MG/DL (8.5-10.1); Osmolality,Calculated 266.4 MOS/KG (273-304); Potassium 3.5 MMOL/L (3.5-5.1); Total Protein 6.6 G/DL (6.4-8.2)
[2022-10-26 01:30] LABS: Bilirubin,Total 23.1 MG/DL (0.20-1.00); Lactic Acid 5.8 MMOL/L (0.4-2.0)
[2022-10-26] MEDS ORDERED: LACTULOSE 20 GM/30 ML UDCUP PO STA (02:34)
[2022-10-26] MEDS ORDERED: THIAMINE INJ 100 MG, FOLIC ACID INJ 1 MG, MAGNESIUM SULF INJ 2 GM, MULTIVITAMIN INJ 10 ... IV ONE (03:01)
[2022-10-26] MEDS ORDERED: SODIUM CHLORIDE 0.9% 2,850 ML IV ONE (03:30)
[2022-10-26] MEDS ORDERED: LACTATED RINGERS 850 ML IV ONE (03:30)
[2022-10-26] MEDS ORDERED: ONDANSETRON 4 MG/2 ML VIAL IV PRN (06:07)
[2022-10-26] MEDS ORDERED: hydrALAZINE 20 MG/1 ML VIAL IV PRN (06:07)
[2022-10-26] MEDS ORDERED: NICOTINE 21 MG/24 HR PATCH TRANSDERM PRN (06:07)
[2022-10-26] MEDS ORDERED: MORPHINE 2 MG/1 ML SYRINGE IV PRN (06:07)
[2022-10-26] MEDS ORDERED: SODIUM CHLORIDE 0.9% 1,000 ML IV PRN (06:17)
[2022-10-26 06:20] LABS: Hematocrit 15.7 VOL% (42.0-52.0); Hemoglobin 5.9 GM/DL (14.0-18.0)
[2022-10-26] MEDS: PANTOPRAZOLE INJ 200 MG in SODIUM CHLORIDE 0.9% 250 ML IV SCH (06:45)
[2022-10-26 08:07] LABS: Bilirubin,Urine Large mg/dL (Negative); Glucose,Urine (UA) 100 mg/dL (Negative); Ketones,Urine 15 mg/dL (Negative); Mucus,Urine Occasional /LPF (Occasional); Nitrite,Urine Negative (Negative); Protein,Urine Negative (Negative); RBC,Urine 1 /HPF (0-4); Squamous Epithelial Cell,Urine Occasional /HPF (0-10); Urine Appearance Clear (Clear); Urine Color Dark Yellow (Yellow)
[2022-10-26 08:08] LABS: Blood, Urine Negative (Negative)
[2022-10-26 08:12] LABS: Barbiturates Screen,Urine Negative (Negative); Benzodiazepines Screen,Urine Negative (Negative); Cannabinoid Screen,Urine Positive (Negative); Opiate Screen,Urine Negative (Negative); Phencyclidine Screen,Urine Negative (Negative)
[2022-10-26] MEDS: SODIUM CHLORIDE 0.9% 1,000 ML IV SCH ×3 (11:04→23:29)
[2022-10-26] MEDS ORDERED: propofoL 200 MG/20 ML VIAL IV ONE ×2 (11:55→12:52)
[2022-10-26] MEDS ORDERED: LIDOCAINE 2% 5 ML VIAL ONE (11:55)
[2022-10-26] MEDS ORDERED: SUCCINYLCHOLINE 200 MG/10 ML VIAL ONE (11:55)
[2022-10-26 12:04] LABS: Basophils % 0.4 % (0.0-0.8); Eosinophils % 0.3 % (0.00-10.9); Hematocrit 22.5 VOL% (42.0-52.0); Immature Granulocytes % 0.9 %; Immature Granulocytes Absolute 0.09 #; Lymphocytes # 1.5 10*3/uL (1.4-4.0); Lymphocytes % 14.5 % (21.2-54.2); Mean Corpuscular HGB Conc 35.6 GM/DL (32-36); Mean Corpuscular Volume 91.8 FL (87-102); Monocytes # 0.8 10*3/uL (0.11-0.8); Monocytes % 8.3 % (1.7-12.7); Neutrophils % 75.6 % (38.7-73.9); Platelet Count 56 T/CUMM (130-400); Red Blood Count 2.45 MC/CUMM (3.8-5.5); Red Cell Distribution Width 21.7 % (9.3-17.3); White Blood Count 10.1 T/CUMM (4-12)
[2022-10-26] MEDS ORDERED: SEVOFLURANE 1 UNIT/15 MINUTE INH ONE (13:04)
[2022-10-26] MEDS: OCTREOTIDE 500 MCG in SODIUM CHLORIDE 0.9% 100 ML IV SCH ×2 (13:58→23:30)
[2022-10-26] MEDS ORDERED: DIAZEPAM 10 MG/2 ML SYRINGE IV ONE (14:07)
[2022-10-26] MEDS ORDERED: HALOPERIDOL 5 MG/ML AMP IM PRN (14:08)
[2022-10-26] MEDS ORDERED: PROMETHAZINE 25 MG/1 ML VIAL IM PRN (15:40)
[2022-10-26] MEDS: VANCOMYCIN 125 MG CAPSULE PO SCH ×2 (15:54→22:32)
[2022-10-26] MEDS: DIAZEPAM 5 MG TABLET PO SCH ×3 (15:54→23:49)
[2022-10-26 18:02] LABS: Basophils % 0.2 % (0.0-0.8); Eosinophils % 0.2 % (0.00-10.9); Hematocrit 20.9 VOL% (42.0-52.0); Hemoglobin 7.5 GM/DL (14.0-18.0); Immature Granulocytes % 0.8 %; Immature Granulocytes Absolute 0.08 #; Lymphocytes # 0.9 10*3/uL (1.4-4.0); Lymphocytes % 8.4 % (21.2-54.2); Mean Corpuscular HGB Conc 35.9 GM/DL (32-36); Mean Corpuscular Volume 90.5 FL (87-102); Mean Platelet Volume 9.6 FL (9.6-12.0); Monocytes # 0.8 10*3/uL (0.11-0.8); Monocytes % 7.9 % (1.7-12.7); NRBC # 0.03 10*3/uL; Neutrophils % 82.5 % (38.7-73.9); Platelet Count 50 T/CUMM (130-400); Red Blood Count 2.31 MC/CUMM (3.8-5.5); Red Cell Distribution Width 21.5 % (9.3-17.3); White Blood Count 10.6 T/CUMM (4-12)
[2022-10-27 00:38] LABS: Basophils % 0.3 % (0.0-0.8); Eosinophils % 0.4 % (0.00-10.9); Hematocrit 21.8 VOL% (42.0-52.0); Hemoglobin 7.9 GM/DL (14.0-18.0); Immature Granulocytes % 0.6 %; Immature Granulocytes Absolute 0.06 #; Lymphocytes # 1.1 10*3/uL (1.4-4.0); Lymphocytes % 11.2 % (21.2-54.2); Mean Corpuscular HGB Conc 36.2 GM/DL (32-36); Mean Corpuscular Volume 91.6 FL (87-102); Mean Platelet Volume 10.6 FL (9.6-12.0); Monocytes # 0.7 10*3/uL (0.11-0.8); Monocytes % 7.1 % (1.7-12.7); Neutrophils % 80.4 % (38.7-73.9); Platelet Count 57 T/CUMM (130-400); Red Blood Count 2.38 MC/CUMM (3.8-5.5); Red Cell Distribution Width 21.9 % (9.3-17.3)
[2022-10-27] MEDS: DIAZEPAM 5 MG TABLET PO SCH ×5 (04:58→20:34)
[2022-10-27 05:11] LABS: Albumin 1.6 G/DL (3.4-5.0); Calcium 6.8 MG/DL (8.5-10.1); Osmolality,Calculated 269.4 MOS/KG (273-304); Total Protein 5.4 G/DL (6.4-8.2)
[2022-10-27 05:16] LABS: Bilirubin,Total 21.3 MG/DL (0.20-1.00)
[2022-10-27] MEDS: VANCOMYCIN 125 MG CAPSULE PO SCH ×4 (06:13→23:22)
[2022-10-27 06:15] LABS: Basophils % 0.4 % (0.0-0.8); Eosinophils # 0.1 10*3/uL (0.0-0.87); Eosinophils % 1.4 % (0.00-10.9); Hemoglobin 6.5 GM/DL (14.0-18.0); Immature Granulocytes % 0.8 %; Immature Granulocytes Absolute 0.07 #; Lymphocytes # 0.9 10*3/uL (1.4-4.0); Mean Corpuscular HGB Conc 36.7 GM/DL (32-36); Mean Corpuscular Volume 91.7 FL (87-102); Mean Platelet Volume 10.7 FL (9.6-12.0); Monocytes # 0.6 10*3/uL (0.11-0.8); Monocytes % 7.6 % (1.7-12.7); Neutrophils % 78.8 % (38.7-73.9); Platelet Count 43 T/CUMM (130-400); Red Blood Count 1.93 MC/CUMM (3.8-5.5); White Blood Count 8.4 T/CUMM (4-12)
[2022-10-27 06:17] LABS: Hematocrit 17.7 VOL% (42.0-52.0)
[2022-10-27] MEDS ORDERED: POTASSIUM CHLORIDE 20 MEQ TABLET PO ONE (06:30)
[2022-10-27] MEDS: PANTOPRAZOLE INJ 200 MG in SODIUM CHLORIDE 0.9% 250 ML IV SCH (08:19)
[2022-10-27] MEDS: LACTULOSE 20 GM/30 ML UDCUP PO SCH ×2 (08:49→21:21)
[2022-10-27] MEDS: OCTREOTIDE 500 MCG in SODIUM CHLORIDE 0.9% 100 ML IV SCH ×4 (08:52→20:33)
[2022-10-27] MEDS: SODIUM CHLORIDE 0.9% 1,000 ML IV SCH ×3 (08:53→23:22)
[2022-10-27 17:03] LABS: Basophils % 0.3 % (0.0-0.8); Eosinophils # 0.1 10*3/uL (0.0-0.87); Eosinophils % 1.6 % (0.00-10.9); Hematocrit 23.2 VOL% (42.0-52.0); Hemoglobin 8.4 GM/DL (14.0-18.0); Immature Granulocytes % 1.3 %; Immature Granulocytes Absolute 0.08 #; Lymphocytes # 0.5 10*3/uL (1.4-4.0); Lymphocytes % 8.6 % (21.2-54.2); Mean Corpuscular HGB Conc 36.2 GM/DL (32-36); Mean Corpuscular Volume 90.6 FL (87-102); Mean Platelet Volume 10.8 FL (9.6-12.0); Monocytes # 0.4 10*3/uL (0.11-0.8); Monocytes % 6.5 % (1.7-12.7); NRBC # 0.02 10*3/uL; Neutrophils % 81.7 % (38.7-73.9); Platelet Count 42 T/CUMM (130-400); Red Blood Count 2.56 MC/CUMM (3.8-5.5); White Blood Count 6.3 T/CUMM (4-12)
[2022-10-27 20:48] LABS: Basophils % 0.2 % (0.0-0.8); Eosinophils # 0.1 10*3/uL (0.0-0.87); Eosinophils % 1.8 % (0.00-10.9); Hematocrit 22.2 VOL% (42.0-52.0); Immature Granulocytes % 1.5 %; Immature Granulocytes Absolute 0.09 #; Lymphocytes # 0.5 10*3/uL (1.4-4.0); Lymphocytes % 8.3 % (21.2-54.2); Mean Corpuscular Volume 90.6 FL (87-102); Mean Platelet Volume 10.4 FL (9.6-12.0); Monocytes # 0.5 10*3/uL (0.11-0.8); Monocytes % 7.8 % (1.7-12.7); NRBC # 0.03 10*3/uL; Neutrophils % 80.4 % (38.7-73.9); Red Blood Count 2.45 MC/CUMM (3.8-5.5); Red Cell Distribution Width 21.2 % (9.3-17.3); White Blood Count 6.1 T/CUMM (4-12)
[2022-10-27 20:50] LABS: Platelet Count 39 T/CUMM (130-400)
[2022-10-28] MEDS: DIAZEPAM 5 MG TABLET PO SCH ×3 (01:21→08:36)
[2022-10-28] MEDS: OCTREOTIDE 500 MCG in SODIUM CHLORIDE 0.9% 100 ML IV SCH ×2 (03:44→06:02)
[2022-10-28 04:58] LABS: Basophils % 0.4 % (0.0-0.8); Eosinophils # 0.1 10*3/uL (0.0-0.87); Eosinophils % 2.4 % (0.00-10.9); Hematocrit 20.1 VOL% (42.0-52.0); Hemoglobin 7.3 GM/DL (14.0-18.0); Immature Granulocytes % 1.8 %; Immature Granulocytes Absolute 0.09 #; Lymphocytes # 0.5 10*3/uL (1.4-4.0); Lymphocytes % 9.8 % (21.2-54.2); Mean Corpuscular HGB Conc 36.3 GM/DL (32-36); Mean Corpuscular Volume 90.5 FL (87-102); Mean Platelet Volume 10.5 FL (9.6-12.0); Monocytes # 0.4 10*3/uL (0.11-0.8); NRBC # 0.05 10*3/uL; Neutrophils % 77.6 % (38.7-73.9); Red Blood Count 2.22 MC/CUMM (3.8-5.5); Red Cell Distribution Width 21.3 % (9.3-17.3)
[2022-10-28 05:03] LABS: Platelet Count 39 T/CUMM (130-400)
[2022-10-28 05:20] LABS: Platelet Estimate Decreased; Target Cells Few
[2022-10-28] MEDS: VANCOMYCIN 125 MG CAPSULE PO SCH ×3 (06:19→16:45)
[2022-10-28] MEDS ORDERED: SODIUM CHLORIDE 0.9% 1,000 ML IV PRN (06:51)
[2022-10-28 07:00] LABS: Albumin 1.7 G/DL (3.4-5.0); Calcium 7.1 MG/DL (8.5-10.1); Osmolality,Calculated 277.5 MOS/KG (273-304); Potassium 2.8 MMOL/L (3.5-5.1); Total Protein 5.3 G/DL (6.4-8.2)
[2022-10-28 07:07] LABS: Bilirubin,Total 21.9 MG/DL (0.20-1.00)
[2022-10-28] MEDS: POTASSIUM CHLORIDE 20 MEQ TABLET PO SCH ×4 (08:36→21:30)
[2022-10-28] MEDS: LACTULOSE 20 GM/30 ML UDCUP PO SCH ×2 (08:36→21:30)
[2022-10-28] MEDS: POTASSIUM CHLORIDE RIDER 10 MEQ/100 ML PREMIX IV SCH ×2 (08:37→09:37)
[2022-10-28] MEDS: SODIUM CHLORIDE 0.9% 1,000 ML IV SCH ×3 (08:37→22:01)
[2022-10-28 12:43] LABS: Basophils % 0.4 % (0.0-0.8); Eosinophils # 0.1 10*3/uL (0.0-0.87); Eosinophils % 1.3 % (0.00-10.9); Hemoglobin 9.8 GM/DL (14.0-18.0); Immature Granulocytes % 1.5 %; Immature Granulocytes Absolute 0.08 #; Lymphocytes # 0.4 10*3/uL (1.4-4.0); Mean Corpuscular HGB Conc 36.3 GM/DL (32-36); Mean Corpuscular Volume 86.3 FL (87-102); Mean Platelet Volume 9.8 FL (9.6-12.0); Monocytes # 0.4 10*3/uL (0.11-0.8); NRBC # 0.03 10*3/uL; Neutrophils % 81.8 % (38.7-73.9); Platelet Count 42 T/CUMM (130-400); Red Blood Count 3.13 MC/CUMM (3.8-5.5); White Blood Count 5.3 T/CUMM (4-12)
[2022-10-28 13:12] LABS: Anisocytosis 1+; Platelet Estimate Decreased; Target Cells 2+
[2022-10-28 13:13] LABS: Burr Cells Few
[2022-10-28] MEDS: PANTOPRAZOLE 40 MG VIAL IV SCH (21:30)
[2022-10-28] MEDS: levETIRAcetam LIQUID 100 MG/ML 30 ML/BOTTLE PO SCH (21:30)
[2022-10-28 22:34] LABS: Basophils % 0.4 % (0.0-0.8); Eosinophils # 0.1 10*3/uL (0.0-0.87); Eosinophils % 1.5 % (0.00-10.9); Hematocrit 25.4 VOL% (42.0-52.0); Hemoglobin 9.3 GM/DL (14.0-18.0); Immature Granulocytes % 1.7 %; Immature Granulocytes Absolute 0.09 #; Lymphocytes # 0.5 10*3/uL (1.4-4.0); Lymphocytes % 9.5 % (21.2-54.2); Mean Corpuscular HGB Conc 36.6 GM/DL (32-36); Mean Corpuscular Volume 84.7 FL (87-102); Mean Platelet Volume 10.3 FL (9.6-12.0); Monocytes # 0.5 10*3/uL (0.11-0.8); Monocytes % 9.7 % (1.7-12.7); NRBC # 0.04 10*3/uL; Neutrophils % 77.2 % (38.7-73.9); Platelet Count 48 T/CUMM (130-400); Red Cell Distribution Width 23.7 % (9.3-17.3); White Blood Count 5.4 T/CUMM (4-12)
[2022-10-29] MEDS: VANCOMYCIN 125 MG CAPSULE PO SCH ×5 (00:13→23:22)
[2022-10-29 05:32] LABS: Albumin 1.8 G/DL (3.4-5.0); Calcium 7.6 MG/DL (8.5-10.1); Osmolality,Calculated 273.7 MOS/KG (273-304); Potassium 3.1 MMOL/L (3.5-5.1); Total Protein 5.7 G/DL (6.4-8.2)
[2022-10-29 05:33] LABS: Bilirubin,Total 24.9 MG/DL (0.20-1.00)
[2022-10-29] MEDS: SODIUM CHLORIDE 0.9% 1,000 ML IV SCH ×4 (05:48→21:10)
[2022-10-29 05:52] LABS: Basophils % 0.4 % (0.0-0.8); Eosinophils # 0.1 10*3/uL (0.0-0.87); Eosinophils % 1.2 % (0.00-10.9); Hematocrit 25.3 VOL% (42.0-52.0); Hemoglobin 9.4 GM/DL (14.0-18.0); Immature Granulocytes % 2.7 %; Immature Granulocytes Absolute 0.13 #; Lymphocytes # 0.5 10*3/uL (1.4-4.0); Lymphocytes % 10.5 % (21.2-54.2); Mean Corpuscular HGB Conc 37.2 GM/DL (32-36); Mean Corpuscular Volume 87.5 FL (87-102); Mean Platelet Volume 9.4 FL (9.6-12.0); Monocytes # 0.5 10*3/uL (0.11-0.8); Monocytes % 10.7 % (1.7-12.7); NRBC # 0.03 10*3/uL; Neutrophils % 74.5 % (38.7-73.9); Platelet Count 48 T/CUMM (130-400); Red Blood Count 2.89 MC/CUMM (3.8-5.5); Red Cell Distribution Width 24.9 % (9.3-17.3); White Blood Count 4.9 T/CUMM (4-12)
[2022-10-29 06:18] LABS: Platelet Estimate Decreased
[2022-10-29] MEDS: LACTULOSE 20 GM/30 ML UDCUP PO SCH ×2 (08:34→21:06)
[2022-10-29] MEDS: POTASSIUM BICARB EFFERVESCENT 20 MEQ TAB.EFF PO SCH (08:34)
[2022-10-29] MEDS: PANTOPRAZOLE 40 MG VIAL IV SCH ×2 (08:34→21:06)
[2022-10-29] MEDS: levETIRAcetam LIQUID 100 MG/ML 30 ML/BOTTLE PO SCH ×2 (08:34→21:06)
[2022-10-30] MEDS: SODIUM CHLORIDE 0.9% 1,000 ML IV SCH ×5 (05:30→21:00)
[2022-10-30] MEDS: VANCOMYCIN 125 MG CAPSULE PO SCH ×4 (05:51→23:08)
[2022-10-30 08:56] LABS: Basophils % 0.3 % (0.0-0.8); Eosinophils # 0.1 10*3/uL (0.0-0.87); Eosinophils % 1.1 % (0.00-10.9); Hematocrit 26.7 VOL% (42.0-52.0); Hemoglobin 9.8 GM/DL (14.0-18.0); Immature Granulocytes % 1.4 %; Immature Granulocytes Absolute 0.09 #; Lymphocytes # 0.8 10*3/uL (1.4-4.0); Lymphocytes % 12.5 % (21.2-54.2); Mean Corpuscular HGB Conc 36.7 GM/DL (32-36); Mean Corpuscular Volume 85.3 FL (87-102); Mean Platelet Volume 9.8 FL (9.6-12.0); Monocytes % 15.1 % (1.7-12.7); Neutrophils % 69.6 % (38.7-73.9); Platelet Count 60 T/CUMM (130-400); Red Blood Count 3.13 MC/CUMM (3.8-5.5); Red Cell Distribution Width 25.6 % (9.3-17.3); White Blood Count 6.3 T/CUMM (4-12)
[2022-10-30] MEDS: POTASSIUM BICARB EFFERVESCENT 20 MEQ TAB.EFF PO SCH (09:12)
[2022-10-30] MEDS: levETIRAcetam LIQUID 100 MG/ML 30 ML/BOTTLE PO SCH ×2 (09:12→21:47)
[2022-10-30] MEDS: DIAZEPAM 5 MG TABLET PO PRN ×2 (09:12→17:59)
[2022-10-30] MEDS: LACTULOSE 20 GM/30 ML UDCUP PO SCH ×2 (09:12→21:47)
[2022-10-30] MEDS: PANTOPRAZOLE 40 MG VIAL IV SCH ×2 (09:12→21:51)
[2022-10-30 10:32] LABS: Anisocytosis 2+; Burr Cells Few; Macrocytosis 1+; Platelet Estimate Decreased; Target Cells 2+
[2022-10-30] MEDS ORDERED: DIAZEPAM 5 MG TABLET PO ONE (11:58)
[2022-10-30] MEDS ORDERED: METOPROLOL TARTRATE 5 MG/5 ML VIAL IV ONE (16:56)
[2022-10-30] MEDS ORDERED: KETOROLAC 30 MG/1 ML VIAL IV ONE (19:02)
[2022-10-30] MEDS ORDERED: SODIUM CHLORIDE 0.9% 1,000 ML IV ONE (19:03)
[2022-10-30] MEDS ORDERED: ACETAMINOPHEN 325 MG TABLET PO ONE (19:04)
[2022-10-30] MEDS: chlordiazePOXIDE 25 MG CAPSULE PO SCH (21:47)
[2022-10-31] MEDS: ACETAMINOPHEN 325 MG TABLET PO PRN ×2 (04:05→20:45)
[2022-10-31] MEDS: VANCOMYCIN 125 MG CAPSULE PO SCH ×4 (05:07→22:56)
[2022-10-31] MEDS: SODIUM CHLORIDE 0.9% 1,000 ML IV SCH ×4 (05:14→22:54)
[2022-10-31 07:19] LABS: Basophils % 0.2 % (0.0-0.8); Eosinophils % 0.2 % (0.00-10.9); Hematocrit 25.4 VOL% (42.0-52.0); Hemoglobin 9.3 GM/DL (14.0-18.0); Immature Granulocytes % 3.1 %; Immature Granulocytes Absolute 0.14 #; Lymphocytes # 0.4 10*3/uL (1.4-4.0); Lymphocytes % 7.8 % (21.2-54.2); Mean Corpuscular HGB Conc 36.6 GM/DL (32-36); Mean Platelet Volume 9.4 FL (9.6-12.0); Monocytes % 21.7 % (1.7-12.7); NRBC # 0.02 10*3/uL; Red Blood Count 2.92 MC/CUMM (3.8-5.5); Red Cell Distribution Width 26.5 % (9.3-17.3); White Blood Count 4.5 T/CUMM (4-12)
[2022-10-31 07:21] LABS: Platelet Count 59 T/CUMM (130-400)
[2022-10-31 07:41] LABS: Calcium 7.6 MG/DL (8.5-10.1); Potassium 2.8 MMOL/L (3.5-5.1)
[2022-10-31 07:54] LABS: Albumin 1.8 G/DL (3.4-5.0); Bilirubin,Direct 22.78 MG/DL (0.0-0.20); Total Protein 5.6 G/DL (6.4-8.2)
[2022-10-31 07:56] LABS: Bilirubin,Total 25.8 MG/DL (0.20-1.00)
[2022-10-31 07:57] LABS: Band Neutrophils 1 % (0-10); Eosinophils 1 % (0-10); Lymphocytes 11 % (20-55); Platelet Estimate Decreased; Total Cells Counted 100
[2022-10-31 07:58] LABS: Target Cells Few
[2022-10-31] MEDS: LACTULOSE 20 GM/30 ML UDCUP PO SCH ×2 (08:40→20:44)
[2022-10-31] MEDS: POTASSIUM BICARB EFFERVESCENT 20 MEQ TAB.EFF PO SCH ×3 (08:40→20:45)
[2022-10-31] MEDS: PANTOPRAZOLE 40 MG VIAL IV SCH ×2 (08:43→20:45)
[2022-10-31] MEDS: chlordiazePOXIDE 25 MG CAPSULE PO SCH ×4 (08:44→20:45)
[2022-10-31] MEDS: levETIRAcetam LIQUID 100 MG/ML 30 ML/BOTTLE PO SCH ×2 (08:46→20:49)
[2022-10-31] MEDS: POTASSIUM CHLORIDE RIDER 10 MEQ/100 ML PREMIX IV SCH ×4 (13:06→18:53)
[2022-10-31] MEDS: LORazepam 2 MG/1 ML VIAL IV PRN (18:22)
[2022-11-01 04:50] LABS: Basophils % 0.4 % (0.0-0.8); Eosinophils # 0.1 10*3/uL (0.0-0.87); Eosinophils % 1.3 % (0.00-10.9); Hematocrit 25.1 VOL% (42.0-52.0); Hemoglobin 9.1 GM/DL (14.0-18.0); Immature Granulocytes Absolute 0.05 #; Lymphocytes # 0.8 10*3/uL (1.4-4.0); Lymphocytes % 17.2 % (21.2-54.2); Mean Corpuscular HGB Conc 36.3 GM/DL (32-36); Mean Corpuscular Volume 88.1 FL (87-102); Mean Platelet Volume 9.4 FL (9.6-12.0); Monocytes # 1.2 10*3/uL (0.11-0.8); Neutrophils % 54.1 % (38.7-73.9); Red Blood Count 2.85 MC/CUMM (3.8-5.5); Red Cell Distribution Width 26.7 % (9.3-17.3); White Blood Count 4.8 T/CUMM (4-12)
[2022-11-01 04:51] LABS: Platelet Count 64 T/CUMM (130-400)
[2022-11-01 05:12] LABS: Albumin 1.6 G/DL (3.4-5.0); Bilirubin,Direct 21.26 MG/DL (0.0-0.20); Calcium 7.4 MG/DL (8.5-10.1); Osmolality,Calculated 269.8 MOS/KG (273-304); Potassium 3.3 MMOL/L (3.5-5.1); Total Protein 5.2 G/DL (6.4-8.2)
[2022-11-01] MEDS: VANCOMYCIN 125 MG CAPSULE PO SCH ×3 (05:18→17:30)
[2022-11-01 05:33] LABS: Bilirubin,Total 23.3 MG/DL (0.20-1.00)
[2022-11-01 06:23] LABS: Band Neutrophils 2 % (0-10); Eosinophils 3 % (0-10); Hypochromia Slight; Lymphocytes 19 % (20-55); Microcytosis Slight; Platelet Estimate Decreased; Total Cells Counted 100
[2022-11-01 06:24] LABS: Target Cells Few
[2022-11-01] MEDS: SODIUM CHLORIDE 0.9% 1,000 ML IV SCH ×2 (07:05→17:31)
[2022-11-01] MEDS ORDERED: MAGNESIUM SULF RIDER 4 GM/100 ML PREMIX IV ONE (07:49)
[2022-11-01] MEDS ORDERED: POTASSIUM CHLORIDE 20 MEQ TABLET PO ONE (07:53)
[2022-11-01] MEDS: PANTOPRAZOLE 40 MG VIAL IV SCH ×2 (09:20→21:32)
[2022-11-01] MEDS: LACTULOSE 20 GM/30 ML UDCUP PO SCH ×2 (09:21→21:31)
[2022-11-01] MEDS: chlordiazePOXIDE 25 MG CAPSULE PO SCH ×2 (09:21→14:07)
[2022-11-01] MEDS: POTASSIUM BICARB EFFERVESCENT 20 MEQ TAB.EFF PO SCH ×3 (09:21→21:32)
[2022-11-01] MEDS: levETIRAcetam LIQUID 100 MG/ML 30 ML/BOTTLE PO SCH ×2 (09:22→21:30)
[2022-11-01 17:43] LABS: Hyaline Casts,Urine 3 /LPF (0-3); Mucus,Urine Occasional /LPF (Occasional); RBC,Urine 5 /HPF (0-4); Squamous Epithelial Cell,Urine Occasional /HPF (0-10); Urine Appearance Clear (Clear); Urine Color Yellow (Yellow)
[2022-11-01 17:44] LABS: Bilirubin,Urine Large mg/dL (Negative); Blood, Urine Trace mg/dL (Negative); Glucose,Urine (UA) 100 mg/dL (Negative); Ketones,Urine Negative (Negative); Nitrite,Urine Negative (Negative); Protein,Urine Negative (Negative); Urine Specific Gravity 1.015 (1.001-1.035); Urine Urobilinogen 0.2 eU/dL (<2.0)
[2022-11-01] MEDS: chlordiazePOXIDE 10 MG CAPSULE PO SCH (21:32)
[2022-11-02] MEDS: VANCOMYCIN 125 MG CAPSULE PO SCH ×4 (00:42→21:18)
[2022-11-02] MEDS: SODIUM CHLORIDE 0.9% 1,000 ML IV SCH ×2 (04:30→16:40)
[2022-11-02 06:06] LABS: Basophils % 0.7 % (0.0-0.8); Eosinophils # 0.1 10*3/uL (0.0-0.87); Eosinophils % 0.9 % (0.00-10.9); Hematocrit 24.1 VOL% (42.0-52.0); Hemoglobin 8.7 GM/DL (14.0-18.0); Immature Granulocytes % 2.6 %; Immature Granulocytes Absolute 0.14 #; Lymphocytes # 1.1 10*3/uL (1.4-4.0); Lymphocytes % 19.7 % (21.2-54.2); Mean Corpuscular HGB Conc 36.1 GM/DL (32-36); Mean Corpuscular Volume 87.6 FL (87-102); Mean Platelet Volume 9.6 FL (9.6-12.0); Monocytes # 1.3 10*3/uL (0.11-0.8); Monocytes % 23.5 % (1.7-12.7); Neutrophils % 52.6 % (38.7-73.9); Platelet Count 75 T/CUMM (130-400); Red Blood Count 2.75 MC/CUMM (3.8-5.5); Red Cell Distribution Width 26.5 % (9.3-17.3); White Blood Count 5.4 T/CUMM (4-12)
[2022-11-02 06:28] LABS: Eosinophils 1 % (0-10); Hypochromia 1+; Lymphocytes 11 % (20-55); Platelet Estimate Decreased; Target Cells Few; Total Cells Counted 100
[2022-11-02 06:51] LABS: Albumin 1.7 G/DL (3.4-5.0); Bilirubin,Direct 20.57 MG/DL (0.0-0.20); Calcium 7.9 MG/DL (8.5-10.1); Osmolality,Calculated 270.7 MOS/KG (273-304); Potassium 3.6 MMOL/L (3.5-5.1); Total Protein 5.3 G/DL (6.4-8.2)
[2022-11-02 06:57] LABS: Bilirubin,Total 23.6 MG/DL (0.20-1.00)
[2022-11-02] MEDS: levETIRAcetam LIQUID 100 MG/ML 30 ML/BOTTLE PO SCH ×2 (09:03→21:28)
[2022-11-02] MEDS: LACTULOSE 20 GM/30 ML UDCUP PO SCH ×2 (09:03→21:20)
[2022-11-02] MEDS: chlordiazePOXIDE 10 MG CAPSULE PO SCH ×2 (09:04→21:18)
[2022-11-02] MEDS: POTASSIUM BICARB EFFERVESCENT 20 MEQ TAB.EFF PO SCH ×2 (09:04→21:21)
[2022-11-02] MEDS: PANTOPRAZOLE 40 MG TABLET PO SCH ×2 (09:19→21:18)
[2022-11-02] MEDS: ALBUMIN 25% 25 GM/100 ML VIAL IV SCH ×2 (13:39→21:22)
[2022-11-02] MEDS: RIFAXIMIN 550 MG TABLET PO SCH ×2 (16:09→21:18)
[2022-11-02] MEDS: LORazepam 2 MG/1 ML VIAL IV PRN (16:09)
[2022-11-02] MEDS: THIAMINE 100 MG TABLET PO SCH (21:18)
[2022-11-03] MEDS: ALBUMIN 25% 25 GM/100 ML VIAL IV SCH (04:25)
[2022-11-03] MEDS: VANCOMYCIN 125 MG CAPSULE PO SCH ×4 (04:26→22:07)
[2022-11-03] MEDS: LORazepam 2 MG/1 ML VIAL IV PRN (04:53)
[2022-11-03 05:17] LABS: Basophils # 0.1 10*3/uL (0.0-0.2); Basophils % 0.7 % (0.0-0.8); Eosinophils # 0.1 10*3/uL (0.0-0.87); Eosinophils % 1.6 % (0.00-10.9); Hematocrit 23.4 VOL% (42.0-52.0); Hemoglobin 8.4 GM/DL (14.0-18.0); Immature Granulocytes % 3.9 %; Immature Granulocytes Absolute 0.26 #; Lymphocytes # 1.1 10*3/uL (1.4-4.0); Lymphocytes % 16.9 % (21.2-54.2); Mean Corpuscular HGB Conc 35.9 GM/DL (32-36); Mean Platelet Volume 9.7 FL (9.6-12.0); Monocytes # 1.2 10*3/uL (0.11-0.8); Monocytes % 17.7 % (1.7-12.7); NRBC # 0.02 10*3/uL; Neutrophils % 59.2 % (38.7-73.9); Platelet Count 75 T/CUMM (130-400); Red Blood Count 2.72 MC/CUMM (3.8-5.5); Red Cell Distribution Width 26.3 % (9.3-17.3); White Blood Count 6.7 T/CUMM (4-12)
[2022-11-03 05:24] LABS: INR 2.1; PT Patient Result 22.1 SECS (10.1-12.1); Partial Thromboplastin Time 54.7 SECS (23.7-32.9)
[2022-11-03 05:41] LABS: Eosinophils 2 % (0-10); Lymphocytes 22 % (20-55); Platelet Estimate Decreased; Total Cells Counted 100
[2022-11-03 05:42] LABS: Hypochromia Slight; Microcytosis Slight; Target Cells Few
[2022-11-03 06:07] LABS: Albumin 2.1 G/DL (3.4-5.0); Bilirubin,Direct 22.71 MG/DL (0.0-0.20); Bilirubin,Indirect 4.5 MG/DL (0.0-1.0); Calcium 8.4 MG/DL (8.5-10.1); Osmolality,Calculated 274.4 MOS/KG (273-304); Potassium 3.5 MMOL/L (3.5-5.1); Total Protein 5.5 G/DL (6.4-8.2)
[2022-11-03 06:12] LABS: Bilirubin,Total 27.2 MG/DL (0.20-1.00)
[2022-11-03] MEDS: LACTULOSE 20 GM/30 ML UDCUP PO SCH ×4 (09:50→22:05)
[2022-11-03] MEDS: levETIRAcetam LIQUID 100 MG/ML 30 ML/BOTTLE PO SCH ×2 (09:50→22:04)
[2022-11-03] MEDS: MULTIVITAMIN (BEROCCA) TABLET PO SCH (09:51)
[2022-11-03] MEDS: chlordiazePOXIDE 10 MG CAPSULE PO SCH ×2 (09:51→22:06)
[2022-11-03] MEDS: THIAMINE 100 MG TABLET PO SCH ×2 (09:51→22:07)
[2022-11-03] MEDS: PANTOPRAZOLE 40 MG TABLET PO SCH ×2 (09:51→22:08)
[2022-11-03] MEDS: POTASSIUM BICARB EFFERVESCENT 20 MEQ TAB.EFF PO SCH ×2 (09:51→22:09)
[2022-11-03] MEDS: FUROSEMIDE 20 MG TABLET PO SCH (09:51)
[2022-11-03] MEDS: MULTIVITAMIN (CENTRUM) TABLET PO SCH (09:51)
[2022-11-03] MEDS: ESCITALOPRAM 10 MG TABLET PO SCH (09:52)
[2022-11-03] MEDS: RIFAXIMIN 550 MG TABLET PO SCH ×2 (09:52→22:08)
[2022-11-03] MEDS: FOLIC ACID 1 MG TABLET PO SCH (09:52)
[2022-11-03] MEDS ORDERED: MAGNESIUM OXIDE 400 MG TABLET PO ONE (12:49)
[2022-11-04] MEDS: LACTULOSE 20 GM/30 ML UDCUP PO SCH ×4 (03:28→17:51)
[2022-11-04] MEDS: VANCOMYCIN 125 MG CAPSULE PO SCH ×3 (03:36→17:51)
[2022-11-04 04:46] LABS: Basophils # 0.1 10*3/uL (0.0-0.2); Basophils % 0.8 % (0.0-0.8); Eosinophils # 0.1 10*3/uL (0.0-0.87); Eosinophils % 1.1 % (0.00-10.9); Hematocrit 24.9 VOL% (42.0-52.0); Hemoglobin 8.9 GM/DL (14.0-18.0); Immature Granulocytes % 3.8 %; Immature Granulocytes Absolute 0.32 #; Lymphocytes % 11.6 % (21.2-54.2); Mean Corpuscular HGB Conc 35.7 GM/DL (32-36); Mean Corpuscular Volume 87.1 FL (87-102); Mean Platelet Volume 9.6 FL (9.6-12.0); Monocytes % 12.2 % (1.7-12.7); NRBC # 0.03 10*3/uL; Neutrophils % 70.5 % (38.7-73.9); Platelet Count 81 T/CUMM (130-400); Red Blood Count 2.86 MC/CUMM (3.8-5.5); Red Cell Distribution Width 26.4 % (9.3-17.3); White Blood Count 8.4 T/CUMM (4-12)
[2022-11-04 05:04] LABS: Calcium 8.9 MG/DL (8.5-10.1); Osmolality,Calculated 271.7 MOS/KG (273-304); Potassium 3.3 MMOL/L (3.5-5.1)
[2022-11-04 05:06] LABS: Eosinophils 1 % (0-10); Lymphocytes 11 % (20-55); Nucleated Red Blood Cells 1 /100 WBC (0-5); Platelet Estimate Decreased; Target Cells Few; Total Cells Counted 100
[2022-11-04 05:07] LABS: Hypochromia Slight
[2022-11-04] MEDS ORDERED: LACTATED RINGERS 1,000 ML IV SCH (08:00)
[2022-11-04] MEDS ORDERED: POTASSIUM BICARB EFFERVESCENT 20 MEQ TAB.EFF PO SCH (09:00)
[2022-11-04] MEDS ORDERED: POTASSIUM CHLORIDE 20 MEQ TABLET PO ONE (09:00)
[2022-11-04] MEDS: chlordiazePOXIDE 10 MG CAPSULE PO SCH (09:31)
[2022-11-04] MEDS: ESCITALOPRAM 10 MG TABLET PO SCH (09:32)
[2022-11-04] MEDS: FUROSEMIDE 20 MG TABLET PO SCH (09:32)
[2022-11-04] MEDS: MULTIVITAMIN (CENTRUM) TABLET PO SCH (09:32)
[2022-11-04] MEDS: THIAMINE 100 MG TABLET PO SCH (09:32)
[2022-11-04] MEDS: PANTOPRAZOLE 40 MG TABLET PO SCH (09:32)
[2022-11-04] MEDS: RIFAXIMIN 550 MG TABLET PO SCH (09:32)
[2022-11-04] MEDS: FOLIC ACID 1 MG TABLET PO SCH (09:32)
[2022-11-04] MEDS: MULTIVITAMIN (BEROCCA) TABLET PO SCH (09:32)
[2022-11-04] MEDS: levETIRAcetam LIQUID 100 MG/ML 30 ML/BOTTLE PO SCH (09:42)
[2022-11-04 16:31] VITALS: BP 112/62
== END 2022-11-04 19:50 | disposition hospice, home (50) | DRG 280 ==
LOC: SUATTDRO → N.ED 00:29 → N.EDINP 06:02 → SUATTDRO 06:02 → N.CC 07:29 → N.2E 10-30 17:10
PROVIDERS: ADMIT Internal Medicine; ATTEND Internal Medicine
PROC: EGDWEBL (ICD-10-PCS; 2022-10-26 12:05)